=== PATIENT | male | born 1950 | race Caucasian/White ===

== ENCOUNTER 2017-12-30 07:50 | Day surgery (SDC) | payer MEDICARE, OTHER, SELFPAY ==
[2017-12-30 08:09] VITALS: BP 153/70; PULSE 68; RESP 16; TEMP 36.5; O2SAT 97; BMI 25.0
--- NOTE | 2017-12-30 09:00 | COLBX_PTH ---
PATIENT: NATIVIDAD ARTIS LOC: [facility] U#:[id number] AGE/SX: 67/M ROOM: RE12/30/[address]: Dr. German Urias MD : 1950 BED: DIS: 12/30/2017 SPEC #: [id number] RECD: 12/30/17 11:32 STATUS: PENELOPE MALATHI #: [id number] ANTONY: 12/30/17 09:[address]: German Urias DEPT: SURGICAL PATHOLOGY RECD BY: Ugo Egan ENTERED: 12/30/17 11:32 SP TYPE: COLON BX OTHR DR: Dr. Edgar Whitley MD Tissues: A - Sigmoid colon biopsy B - Rectum, NOS Procedures: Surgery Specimen Level IV HEADER OPERATION: Colonoscopy with polypectomy PRE-OP DIAGNOSIS: Screening TISSUE SUBMITTED: A ? Sigmoid polyp 25 cm, B ? Rectal polyp MICROSCOPIC DIAGNOSIS A. Sigmoid polyp at 25 cm, polypectomy: Tubular adenoma. B. Rectal polyp, biopsy: Hyperplastic polyp. JASPAL:marilin 01/02/18 MICROSCOPIC DESCRIPTION Slides are reviewed. GROSS DESCRIPTION A - Received in fixative is one container labeled with the patient's name and designated sigmoid polyp 25 cm. The specimen consists of a piece of greenfield-pink polyp measuring 0.6 x 0.6 x 0.4 cm. The specimen is totally submitted in one cassette. B - Received in fixative is one container labeled with the patient's name and designated rectal polyp. The specimen consists of two irregular fragments of light greenfield soft tissue that in aggregate measure 0.4 x 0.3 x 0.1 cm. The specimen is totally submitted in one cassette. / JASPAL:marilin 12/30/17 TC:1 CPT: 69052 x2
--- NOTE | 2017-12-30 09:09 | PCM.OPRPT ---
Problem List (1) Screen for colon cancer Status: Acute Report of Operation Date of Procedure: 12/30/17 Pre-Operative Diagnosis: Screening colonoscopy Post-Operative Diagnosis: Sigmoid and rectal polyp Surgery/Procedure Performed:: Colonoscopy with snare polypectomy Specimen's removed: 1. Sigmoid polyp at 25 cm. 2. Rectal polyp Description of Procedure: The major risks and benefits associated with the procedure were explained to the patient in detail. The patient verbalized understanding and agreement with the same. The patient was brought to the endoscopy suite. After adequate sedation was achieved, the patient was placed in the left lateral decubitus position and a digital rectal exam was performed. This examination was within normal limits. A well-lubricated colonoscope was then inserted into the rectum and advanced under direct visualization to the level of the cecum. The bowel prep was good. The cecum was identified by both visual and anatomic landmarks. A photograph was taken of the end of the cecum. The scope was then fully withdrawn while examining the color, texture, anatomy and integrity of the mucosa from the cecum to the anal canal. The findings were consistent with normal colonic mucosa. Over 6 minutes were taken to examine the colonic mucosa. The patient did have a pedunculated polyp at 25 cm in the sigmoid colon. This was removed with cautery snare. The patient also had a small rectal polyp which was also removed with cautery snare. Hemostasis was good at both locations. Upon reaching the rectum the scope was retroflexed to examine the distal rectal vault. The scope was then straightened and was completely retrieved upon exiting the anal canal and the procedure was terminated. The patient was then transferred to the recovery room in stable condition. Recommendations for follow up: Dependent on pathology
[2017-12-30 09:11] VITALS: BP 153/70; BP 96/76; PULSE 78; RESP 16; TEMP 37.2; O2SAT 98
[2017-12-30 09:15] VITALS: BP 136/76; BP 153/70; PULSE 76; RESP 18; O2SAT 99
[2017-12-30 09:20] VITALS: BP 140/72; BP 153/70; PULSE 70; RESP 18; O2SAT 97
[2017-12-30 09:26] VITALS: BP 153/70; BP 176/87; PULSE 76; RESP 18; TEMP 37; O2SAT 100
[2017-12-30 09:45] VITALS: BP 153/70
== END 2017-12-30 09:50 | disposition home or self-care (01) ==
LOC: EN 07:52 → AC 07:53
PROVIDERS: Family Provider Family Medicine; PCP Family Medicine; Visit Provider Surgery
PROC: 0DJD8ZZ Inspection of Lower Intestinal Tract, Via Natural or Artificial Opening Endoscopic (ICD-10-PCS; CPT 45378; principal; 2017-12-30 08:50)
DX: Z12.11 Encounter for screening for malignant neoplasm of colon (principal); D12.5 Benign neoplasm of sigmoid colon; K62.1 Rectal polyp; I10 Essential (primary) hypertension; F17.200 Nicotine dependence, unspecified, uncomplicated; Z79.82 Long term (current) use of aspirin; Z79.899 Other long term (current) drug therapy; Z85.51 Personal history of malignant neoplasm of bladder; Z92.21 Personal history of antineoplastic chemotherapy
CPT/HCPCS: 45385; 88305; J7120

== ENCOUNTER → 2018-01-17 18:31 | Outpatient (CLI) | payer MEDICARE, OTHER, SELFPAY ==
--- NOTE | 2018-01-17 16:20 | CYSPIN_PTH ---
PATIENT: NATIVIDAD ARTIS LOC: [facility] U#:[id number] AGE/SX: 75/M ROOM: RE01/17/[address]: Dr. Justin Vicente MD : 1950 BED: DIS: SPEC #: [id number] RECD: 01/18/18 08:03 STATUS: PENELOPE MALATHI #: [id number] ANTONY: 01/17/18 16:[address]: Justin Vicente DEPT: CYTOLOGY RECD BY: Maik Bravo ENTERED: 01/18/18 08:04 SP TYPE: CYSPIN FL OTHR DR: Dr. Edgar Whitley MD Tissues: Urine Procedures: Pap Stain (control) Special Stain Group II Cytospin Fluid HEADER OPERATION: Not noted PRE-OP DIAGNOSIS: History of bladder CA TISSUE SUBMITTED: Urine for cytology DIAGNOSIS CYTOLOGY Urine for cytology (cytospin): Negative for malignant cells. AM:marilin 01/19/18 COMMENT The tissue primarily contains squamous epithelial cells. Clinical correlation is suggested. CYTOLOGY STUDY Slides are reviewed. CYTOLOGY GROSS Received is 30 ml of clear yellow fluid labeled with the patient's name and and designated per the requisition as urine. Submitted for cytology preparation. 01/18/18 TC:5 CPT: 69610
[2018-01-17 18:33] LABS: Cytology, Body Fluid / CSF SEE PATHOLOGY REPORT
== END ==
PROVIDERS: Family Provider Family Medicine; PCP Family Medicine; Visit Provider Urology
DX: Z85.51 Personal history of malignant neoplasm of bladder (principal)
CPT/HCPCS: 88108; 88313

== ENCOUNTER 2018-05-31 09:16 | Day surgery (SDC) | payer MEDICARE, OTHER, SELFPAY ==
[2018-05-24 10:08] VITALS: BP 159/74; PULSE 74; RESP 16; TEMP 37.1; O2SAT 98; BMI 26.2
--- NOTE | 2018-05-24 10:25 | SDCEKG_ITS ---
Test Reason : Blood Pressure : / mmHG Vent. Rate : 067 BPM Atrial Rate : 067 BPM P-R Int : 152 ms QRS Dur : 078 ms QT Int : 400 ms P-R-T Axes : 060 016 034 degrees QTc Int : 422 ms Normal sinus rhythm Normal ECG Confirmed by JULIA FRANCO, BRITTANY ([id number]), makeup editor BRONWYN TROY ([id number]) on 05/26/2018 2:02:42 PM Referred By: Justin Vicente Confirmed By:BRITTANY DUMONT MD
[2018-05-24 10:51] LABS: Hematocrit 47.6 % (40-54); Hemoglobin 15.5 g/dl (13.0-16.5); Mean Corp Hgb Conc 32.6 g/gl (32-36); Mean Corpuscular Hgb 30.5 pg (27.0-32.0); Mean Corpuscular Volume 93.5 fL (80-94); Mean Platelet Vol. 11.5 fl (6.2-12.0); Platelet Count 185 K/mm3 (150-450); RBC Distribution Width CV 13.2 % (11.6-14.6); RBC Distribution Width SD 45.2 fl (35.1-43.9); Red Blood Count 5.09 M/mm3 (4.6-6.2); White Blood Count 6.7 K/mm3 (4.4-11.0)
[2018-05-24 10:52] LABS: Scan Indicated on CBC? Y/N NO
[2018-05-24 11:03] LABS: Prothrombin Time (Protime)PT. 12.8 SECONDS (11.7-14.9)
[2018-05-24 11:04] LABS: Partial Thromboplast Time 23.2 Seconds (24.1-36.2)
[2018-05-24 11:08] LABS: AST(SGOT) 16 U/L (15-37); Alanine Aminotransfer ALT/SGPT 29 U/L (16-61); Albumin, Serum 3.9 g/dL (3.2-5.0); Alkaline Phosphatase 66 U/L (45-117); Anion Gap 7 (5-15); BUN 19 mg/dL (7-18); BUN/Creat Ratio 20.3 RATIO (10-20); Bilirubin, Direct 0.15 mg/dL (0.00-0.30); Calcium,Total 9.1 mg/dL (8.5-10.1); Chloride 105 mmol/L (98-107); Creatinine, Serum 0.94 mg/dL (0.70-1.30); EST Glomerular Filtration Rate 85 mL/min (>60); Est Glom Filt Rate - Afr Amer 103 mL/min (>60); Estimated Creatinine Clearance 70.32 ml/min; Globulin 3.3 g/dL (2.2-4.2); Glucose 99 mg/dL (74-106); Potassium 4.9 mmol/L (3.5-5.1); Protein, Total 7.2 g/dL (6.4-8.2); Sodium Level 140 mmol/L (136-145)
[2018-05-31] VITALS (11 sets, daily range): BP systolic 137–168; BP diastolic 58–93; PULSE 60–85; RESP 14–18; TEMP 36.3–36.8; O2SAT 94–100; BMI 26.2
--- NOTE | 2018-05-31 10:55 | PROS_PTH ---
PATIENT: NATIVIDAD ARTIS [place] [facility] [id number] AGE/SX: 67/M ROOM: RE05/31/[address]: Dr. Justin Vicente MD : 1950 BED: DIS: 06/01/2018 SPEC #: [id number] RECD: 05/31/18 14:54 STATUS: PENELOPE SERVIN #: [id number] ANTONY: 05/31/18 10:[address]: Justin Vicente DEPT: SURGICAL PATHOLOGY RECD BY: Maik Bravo ENTERED: 06/01/18 10:07 SP TYPE: TURP OTHR DR: Dr. Edgar Whitley MD Tissues: Prostate, NOS Procedures: Surgery Specimen Level IV HEADER OPERATION: Cysto, TUR, prostate, [employer] PRE-OP DIAGNOSIS: BPH with obstruction TISSUE SUBMITTED: Prostate tissue MICROSCOPIC DIAGNOSIS Prostate, transurethral resection: Acute and chronic inflammation. Benign nodular hyperplasia, glandular and stromal types. No evidence of malignancy. AM:marilin 06/02/18 MICROSCOPIC DESCRIPTION Slides are reviewed. GROSS DESCRIPTION Received is one container labeled with the patient's name and designated prostate tissue. The specimen consists of multiple irregular fragments of pink-greenfield, rubbery, soft tissue that in aggregate weigh 19.4 gm and measure in aggregate 7 x 7 x 3 cm. Food Service Helper tissue is submitted in 12 cassettes. JASPAL:marilin 06/01/18 TC:2 CPT: 17578
[2018-05-31] MEDS: Cefazolin 2 GM in 0.9% Normal Saline 100 ML IV (11:32)
[2018-05-31] MEDS: Lubricating Jelly 60 GM Tube 30 GM TOPICAL (11:58)
--- NOTE | 2018-05-31 12:57 | PCM.OPRPT ---
Report of Operation Date of Procedure: 05/31/18 Pre-Operative Diagnosis: BPH with obstruction Post-Operative Diagnosis: Same Surgery/Procedure Performed:: Transurethral resection of the prostate Description of Surgical Findings:: 67-year-old male taken back to the operating room after smooth induction of general anesthesia he was placed supine on the table we then repositioned in dorsolithotomy position penis and testicles are prepped and draped in usual sterile fashion I then dilated the urethra with sounds up to 26 Maltese and then went into the urethra with a 26 Maltese continuous flow resectoscope once inside the bladder the entire length of the urethra is normal sphincter was normal the bladder was identified he had significant bilateral hypertrophy and obstruction invaginating into the bladder inside the bladder identified the left and right ureteral orifice the bladder was trabeculated and thickened but no tumors or stones are seen within the bladder I then started the resection there was really no median lobe resected the right lobe of the prostate all the way back to the verumontanum resected the left lobe of the prostate low back to the verumontanum resected circumferentially at the bladder neck to make sure had all the invaginating tissue and then resected back to the Vik I then elect out all the chips as I resected and then switch over the button cauterize a nice smooth channel a smooth open the resection at the apex to avoid any flapping tissue and then he had a nice flow that a nice daily and flow maneuver no tissue within the bladder 22 Maltese catheter was put into the bladder continues bladder irrigation the urine was nice and clear the patient was extubated taken back to PACU in good condition. Type of Anesthesia:: General Specimen's removed: prostate tissue - Admit VTE Documentation VTE Present on Admission: No VTE Mechan Device Prophylaxis: SCD's VTE Pharm Prophylaxis ordered?: No Reason prophylaxis not ordered:: Treatment Not Indicated
[2018-05-31] MEDS: Ciprofloxacin 250 MG Tablet PO ×2 (15:20→21:36)
[2018-05-31] MEDS: 0.9% Normal Saline 1,000 ML 75 ML IV (16:58)
[2018-05-31] MEDS: Acetaminophen 325 MG Tablet PO (16:59)
[2018-05-31] MEDS: Ramipril 10 MG Capsule PO (16:59)
[2018-05-31] MEDS: Docusate Sodium 100 MG Capsule PO (21:36)
[2018-06-01 04:30] VITALS: BP 139/57; PULSE 67; RESP 16; TEMP 36.8; O2SAT 96
[2018-06-01] MEDS: 0.9% Normal Saline 1,000 ML 75 ML IV (05:56)
[2018-06-01] MEDS: Ciprofloxacin 250 MG Tablet PO (09:01)
[2018-06-01] MEDS: Docusate Sodium 100 MG Capsule PO (09:01)
[2018-06-01] MEDS: Pantoprazole Sodium 40 MG Tablet PO (09:02)
[2018-06-01 09:31] VITALS: BP 154/56; PULSE 97; RESP 18; TEMP 36.2; O2SAT 96
[2018-06-01 09:32] VITALS: RESP 18
[2018-06-01 11:44] VITALS: BP 144/60; PULSE 65; RESP 18; TEMP 36.8; O2SAT 98
== END 2018-06-01 11:48 | disposition home or self-care (01) ==
LOC: SDC 09:17 → AC 09:17 → MS3 12:13
PROVIDERS: Anesthesiology; Family Provider Family Medicine; PCP Family Medicine; Visit Provider Urology
PROC: (CPT 52601; principal; 2018-05-31 10:45)
DX: N40.1 Benign prostatic hyperplasia with lower urinary tract symptoms (principal); N41.0 Acute prostatitis; N41.1 Chronic prostatitis; C67.1 Malignant neoplasm of dome of bladder; R31.0 Gross hematuria; R33.8 Other retention of urine; N32.89 Other specified disorders of bladder; I10 Essential (primary) hypertension; F17.210 Nicotine dependence, cigarettes, uncomplicated; Z79.82 Long term (current) use of aspirin; Z79.899 Other long term (current) drug therapy
CPT/HCPCS: 52601; 80048; 80076; 85027; 85610; 85730; 88305; 93005; 94762; 99406; J7030; J7120

== ENCOUNTER → 2018-10-03 18:08 | Outpatient (CLI) | payer MEDICARE, OTHER, SELFPAY ==
--- NOTE | 2018-10-03 16:00 | CYSPIN_PTH ---
PATIENT: NATIVIDAD ARTIS LOC: [facility] U#:[id number] AGE/SX: 75/M ROOM: RE10/03/[address]: Dr. Justin Vicente MD : 1950 BED: DIS: SPEC #: [id number] RECD: 10/04/18 10:03 STATUS: PENELOPE MALATHI #: [id number] ANTONY: 10/03/18 16:[address]: Justin Vicente DEPT: CYTOLOGY RECD BY: Evens Mathew ENTERED: 10/04/18 10:04 SP TYPE: CYSPIN FL OTHR DR: Dr. Edgar Whitley MD Tissues: Urine Procedures: Pap Stain (control) Special Stain Group II Cytospin Fluid HEADER OPERATION: Not noted PRE-OP DIAGNOSIS: Bladder cancer TISSUE SUBMITTED: Urine for cytology DIAGNOSIS CYTOLOGY Urine for cytology (cytospin): Negative for malignant cells. AM:marilin 10/05/18 CYTOLOGY STUDY Slides are reviewed. CYTOLOGY GROSS Received is 40 ml of clear gold fluid labeled with the patient's name and and designated per the requisition as urine. Submitted for cytology preparation. 10/04/18 TC:5 CPT: 93322
[2018-10-03 18:10] LABS: Cytology, Body Fluid / CSF SEE PATHOLOGY REPORT
--- OUTSIDE RECORDS SUMMARY | 2019-01-05 06:04 | XMS RPT_ITS ---
:1950 Author Organization OHIP Care Team Providers Name Role Phone Jules Justin Diaz Attending Unavailable Troy, Edgar Primary Care Unavailable Jules, Justin Diaz Referring Unavailable Moodispaamilcar, Larry Attending Unavailable DeHorta, Nolberto Referring Unavailable Jules, Justin Diaz Attending Unavailable Troy, Edgar Primary Care Unavailable Jules, Justin Diaz Referring Unavailable Jules, Justin Diaz Attending Unavailable Troy, Edgar Primary Care Unavailable Jules, Justin Diaz Referring Unavailable Calabretta, German Attending Unavailable Calabretta, German Referring Unavailable Troy, Edgar Primary Care Unavailable Calabretta, German Consulting Unavailable Calabretta, German Attending Unavailable Calabretta, German Referring Unavailable Troy, Edgar Primary Care Unavailable Calabretta, German Attending Unavailable Troy, Edgar Referring Unavailable Troy, Edgar Primary Care Unavailable PROBLEMS PROBLEMS DATE TYPE CONDITION / CODE ATTENDING STATUS SOURCE 07/04/2018 Unknown N40.1 - Benign Jules, Justin Active [facility] prostatic Joe [facility] hyperplasia with Hospital lower urinary Repository tract symptoms / N40.1(ICD-10) 07/03/2018 Unknown I10 - Essential Moodispaw, Larry Active [place] (primary) [facility] hypertension / Hospital I10(ICD-10) Repository PROCEDURES PROCEDURES No Procedure Records FoundRESULTS RESULTS CYTOSPIN ON FLUID Observed: 10/03/2018 Status: F Source: [place] 4:00 PM [facility] Patient: NATIVIDAD ARTIS : 1950 (68/M) Acct Num: [id number] Phys: Jules FRANCO,Justin Diaz Unit Num: [id number] Loc: LABSPEC Specimen: [id number] Received: 10/04/18 - 1003 Spec Type: CYSPIN FL TISSUES 1 TISSUES: Urine CYTOLOGY GROSS Received is 40 ml of clear gold fluid labeled with the patient's name and and designated per the requisition as urine. Submitted for cytology preparation. / 10/04/18 TC:5 CPT: 16987 CYTOLOGY STUDY Slides are reviewed. DIAGNOSIS CYTOLOGY Urine for cytology (cytospin): Negative for malignant cells. AM:marilin 10/05/18 HEADER OPERATION: Not noted PRE-OP DIAGNOSIS: Bladder cancer TISSUE SUBMITTED: Urine for cytology Signed Mario Pascual, DO 10/05/18 <signature on file> Performed By: #### PCYSPIN #### [facility] [address] [place], [address] CYTOLOGY, BODY FLUID / Collected: 10/03/2018 Status: F Source: AYES[place] CSF 4:00 PM [facility] Order Comment: Specimen Source: URINE TYPE CODE TESTS RESULT OUT OF RANGE REFERENCE UNITS LAB L350.1000 SEE Normal PATHOLOGY CYTOLOGY,BF REPORT /CSF Result Comment: Specimen submitted to Anatomical Pathology Department for testing. Performed By: #### L350.1000 #### [facility] [address], [address] OPERATIVE REPORT Observed: 05/31/2018 Status: F Source: [place] 1:00 PM [facility] Medical Records Department [address] [place] [address] Operative Report 05/31/18 1257 MR#: [id number] Acct: [id number] Name: NATIVIDAD ARTIS Rep #: [id number] : 1950 67 From: Justin Vicente MD PCP: Edgar Troy MD Status: [facility] Y Location: [place] [address] Report of Operation Date of Procedure: 05/31/18 Pre-Operative Diagnosis: BPH with obstruction Post-Operative Diagnosis: Same Surgery/Procedure Performed:: Transurethral resection of the prostate Description of Surgical Findings:: 67-year-old male taken back to the operating room after smooth induction of general anesthesia he was placed supine on the table we then repositioned in dorsolithotomy position penis and testicles are prepped and draped in usual sterile fashion I then dilated the urethra with sounds up to 26 Hong [place]er and then went into the urethra with a 26 [place]er continuous flow resectoscope once inside the bladder the entire length of the urethra is normal sphincter was normal the bladder was identified he had significant bilateral hypertrophy and obstruction invaginating into the bladder inside the bladder identified the left and right ureteral orifice the bladder was trabeculated and thickened but no tumors or stones are seen within the bladder I then started the resection there was really no median lobe resected the right lobe of the prostate all the way back to the verumontanum resected the left lobe of the prostate low back to the verumontanum resected circumferentially at the bladder neck to make sure had all the invaginating tissue and then resected back to the Vik I then elect out all the chips as I resected and then switch over the button cauterize a nice smooth channel a smooth open the resection at the apex to avoid any flapping tissue and then he had a nice flow that a nice daily and flow maneuver no tissue within the bladder 22 [place]er catheter was put into the bladder continues bladder irrigation the urine was nice and clear the patient was extubated taken back to PACU in good condition. Type of Anesthesia:: General Specimen's removed: prostate tissue - Admit VTE Documentation VTE Present on Admission: No VTE Mechan Device Prophylaxis: SCD's VTE Pharm Prophylaxis ordered?: No Reason prophylaxis not ordered:: Treatment Not Indicated 05/31/18 1300 <Electronically signed by Justin Vicente MD> Date Justin Vicente MD CC: Edgar Troy MD; Justin Vicente MD Signed PROSTATE, TUR Observed: 05/31/2018 Status: F Source: [place] 10:55 AM [facility] Patient: NATIVIDAD ARTIS : 1950 (67/M) Acct Num: [id number] Phys: Jules FRANCO,Justin Diaz Unit Num: [id number] Loc: [facility] Specimen: [id number] Received: 05/31/18 - 1454 Spec Type: TURP TISSUES TISSUES: Prostate, NOS GROSS DESCRIPTION Received is one container labeled with the patient's name and designated prostate tissue. The specimen consists of multiple irregular fragments of pink-greenfield, rubbery, soft tissue that in aggregate weigh 19.4 gm and measure in aggregate 7 x 7 x 3 cm. Search And Rescue Officer tissue is submitted in 12 cassettes. SJ :marilin 06/01/18 TC:2 CPT: 32187 HEADER OPERATION: Cysto, TUR, prostate, Olympus PRE-OP DIAGNOSIS: BPH with obstruction TISSUE SUBMITTED: Prostate tissue MICROSCOPIC DESCRIPTION Slides are reviewed. MICROSCOPIC DIAGNOSIS Prostate, transurethral resection: Acute and chronic inflammation. Benign nodular hyperplasia, glandular and stromal types. No evidence of malignancy. AM:rg 06/02/18 Signed Mario Jiih 06/02/18 <signature on file> Performed By: #### PPROS #### [facility] [address] [place], [address] 12 LEAD ELECTROCARDIOGRAM Observed: 05/26/2018 Status: F Source: [place] 2:03 PM [facility] Cardiovascular Services [address] [place] [address] EKG - SDC 05/24/18936 MR#: [id number] Acct: [id number] Name: NATIVIDAD ARTIS Rep #: [id number] : 1950 67 From: Larry Dumont MD Attending Dr: Jules FRANCO,Justin Diaz Status: PRE SDC Ordering Dr: Nolberto Lizama MD Date: 05/24/18 Location: [facility] Sex: M C Admitted: Test Reason : Blood Pressure : / mmHG Vent. Rate : 067 BPM Atrial Rate : 067 BPM P-R Int : 152 ms QRS Dur : 078 ms QT Int : 400 ms P-R-T Axes : 060 016 034 degrees QTc Int : 422 ms Normal sinus rhythm Normal ECG Confirmed by JULIA FRANCO, LARRY ([id number]), purchase request editor BRONWYN TROY ([id number]) on 05/26/2018 2:02:42 PM Referred By: Justin Vicente Confirmed By:LARRY DUMONT MD 05/26/18 1402 Date Larry Dumont MD CC: Nolberto Lizama MD; Edgar Troy MD; Justin Vicente MD Date Dictated: 05/24/1837 Date Transcribed: 05/24/18936 Terminal Operator: Signed CBC-COMPLETE BLOOD CNT Collected: 05/24/2018 Status: F Source: [place] NO DIFF 10:28 AM [facility] TYPE CODE TESTS RESULT OUT OF RANGE REFERENCE UNITS LAB L100.1000 4.4-11.0 K/mm3 Normal WBC 6.7 LAB L100.1200 4.6-6.2 M/mm3 Normal RBC 5.09 LAB L100.1300 13.0-16.5 g/dl Normal HGB 15.5 LAB L100.1400 40-54 % Normal HCT 47.6 LAB L100.1500 80-94 fL Normal MCV 93.5 LAB L100.1600 27.0-32.0 pg Normal MCH 30.5 LAB L100.1700 32-36 g/gl Normal MCHC 32.6 LAB L100.1810 11.6-14.6 % Normal RDW CV 13.2 LAB L100.1820 35.1-43.9 fl High RDW SD 45.2 LAB L100.1900 150-450 K/mm3 Normal PLT 185 LAB L100.2000 6.2-12.0 fl Normal MPV 11.5 Performed By: #### L100.0500 #### [facility] [address] [place], [address] BASIC METABOLIC Collected: 05/24/2018 Status: F Source: [place] PROFILE (BMP) 10:28 AM [facility] TYPE CODE TESTS RESULT OUT OF RANGE REFERENCE UNITS LAB L501.0100 74-106 mg/dL Normal GLU 99 Result Comment: Please note revised GLUCOSE reference range effective 2017. LAB L501.1000 7-18 mg/dL High BUN 19 LAB L501.1100 0.70-1.30 mg/dL Normal CREAT,SERUM 0.94 Result Comment: The validity of the calculated GFR AND GFRAA in patients over 70 years has not been determined. Clinical correlation is essential. LAB L501.1110 >60 mL/min Normal EST GFR 85 Result Comment: Non- GFR Calc LAB L501.1115 >60 mL/min Normal EST GFR - AA 103 Result Comment: GFR Calc LAB L501.1255 ml/min Normal Estimated CRCL 70.32 LAB L501.1300 10-20 RATIO High BUN/CRE 20.3 LAB L501.2200 8.5-10 mg/dL Normal .1 CA 9.1 LAB L501.5300 136-14 mmol/L Normal 5 NA 140 LAB L501.5600 3.5-5. mmol/L Normal 1 K 4.9 LAB L501.5900 98-107 mmol/L Normal CL 105 LAB L501.6100 21.0-3 mmol/L Normal 2.0 CO2 28.0 LAB L501.6200 5-15 Normal GAP 7 Performed By: #### L500.2500, L500.3400 #### [facility] [address], [place], [id number] LIVER PROFILE Collected: 05/24/2018 Status: F Source: [place] 10:28 AM [facility] TYPE CODE TESTS RESULT OUT OF RANGE REFERENCE UNITS LAB L501.1500 6.4-8.2 g/dL Normal T PROT 7.2 LAB L501.1800 3.2-5.0 g/dL Normal ALB 3.9 LAB L501.1950 2.2-4.2 g/dL Normal GLOB 3.3 LAB L501.4100 15-37 U/L Normal AST 16 LAB L501.4305 45-117 U/L Normal ALK P 66 LAB L501.4405 16-61 U/L Normal ALT 29 LAB L501.4600 0.20-1.00 mg/dL Normal T BILI 0.50 LAB L501.4700 0.00-0.30 mg/dL Normal D BILI 0.15 Performed By: #### L500.2500, L500.3400 #### [facility] [address], [place], [id number] PROTHROMBIN TIME W/INR Collected: 05/24/2018 Status: F Source: [place] 10:28 AM [facility] TYPE CODE TESTS RESULT OUT OF RANGE REFERENCE UNITS LAB L300.4150 11.7-14.9 SECONDS Normal PROTIME 12.8 LAB L300.4200 Normal INR 1.0 Performed By: #### L300.3900, L300.4310 #### [facility] [address], [place], [id number] PARTIAL THROMBOPLAST Collected: 05/24/2018 Status: F Source: [place] TIME 10:28 AM [facility] TYPE CODE TESTS RESULT OUT OF REFERENCE UNITS RANGE LAB L300.4310 24.1-36.2 Seconds Low PTT 23.2 Performed By: #### L300.3900, L300.4310 #### [facility] [address] [place], [address] CYTOSPIN ON FLUID Observed: 01/17/2018 Status: F Source: [place] 4:20 PM [facility] Patient: NATIVIDAD ARTIS : 1950 (67/M) Acct Num: [id number] Phys: Jules FRANCO,Medardo Unit Num: [id number] Loc: LABSPEC Specimen: [id number] Received: 01/18/18802 Spec Type: CYSPIN FL TISSUES TISSUES: Urine COMMENT The tissue primarily contains squamous epithelial cells. Clinical correlation is suggested. CYTOLOGY GROSS Received is 30 ml of clear yellow fluid labeled with the patient's name and and designated per the requisition as urine. Submitted for cytology preparation. 01/18/18 TC:5 CPT: 70556 CYTOLOGY STUDY Slides are reviewed. DIAGNOSIS CYTOLOGY Urine for cytology (cytospin): Negative for malignant cells. AM:marilin 01/19/18 HEADER OPERATION: Not noted PRE-OP DIAGNOSIS: History of bladder CA TISSUE SUBMITTED: Urine for cytology Signed Mario [facility] 01/19/18 <signature on file> Performed By: #### PCYSPIN #### [facility] [address] [place], [address] CYTOLOGY, BODY FLUID / Collected: 01/17/2018 Status: F Source: [place] CSF 4:20 PM [facility] Order Comment: Specimen Source: URINE TYPE CODE TESTS RESULT OUT OF RANGE REFERENCE UNITS LAB L350.1000 SEE Normal PATHOLOGY CYTOLOGY,BF REPORT /CSF Result Comment: Specimen submitted to Anatomical Pathology Department for testing. Performed By: #### L350.1000 #### [facility] [address] [place], [address] OPERATIVE REPORT Observed: 12/30/2017 Status: F Source: [place] 9:10 AM [facility] Medical Records Department [address] [place] [address] Operative Report 12/30/1709 MR#: [id number] Acct: [id number] Name: NATIVIDAD ARTIS Rep #: [id number] : 1950 67 From: German Urias MD PCP: Edgar Tory MD Status: REG [facility] Y Location: [place] [address] Problem List (1) Screen for colon cancer Status: Acute Report of Operation Date of Procedure: 12/30/17 Pre-Operative Diagnosis: Screening colonoscopy Post-Operative Diagnosis: Sigmoid and rectal polyp Surgery/Procedure Performed:: Colonoscopy with snare polypectomy Specimen's removed: 1. Sigmoid polyp at 25 cm. 2. Rectal polyp Description of Procedure: The major risks and benefits associated with the procedure were explained to the patient in detail. The patient verbalized understanding and agreement with the same. The patient was brought to the endoscopy suite. After adequate sedation was achieved, the patient was placed in the left lateral decubitus position and a digital rectal exam was performed. This examination was within normal limits. A well- lubricated colonoscope was then inserted into the rectum and advanced under direct visualization to the level of the cecum. The bowel prep was good. The cecum was identified by both visual and anatomic landmarks. A photograph was taken of the end of the cecum. The scope was then fully withdrawn while examining the color, texture, anatomy and integrity of the mucosa from the cecum to the anal canal. The findings were consistent with normal colonic mucosa. Over 6 minutes were taken to examine the colonic mucosa. The patient did have a pedunculated polyp at 25 cm in the sigmoid colon. This was removed with cautery snare. The patient also had a small rectal polyp which was also removed with cautery snare. Hemostasis was good at both locations. Upon reaching the rectum the scope was retroflexed to examine the distal rectal vault. The scope was then straightened and was completely retrieved upon exiting the anal canal and the procedure was terminated. The patient was then transferred to the recovery room in stable condition. Recommendations for follow up: Dependent on pathology 12/30/17 0910 <Electronically signed by German Urias MD> Date German Urias MD CC: German Urias MD; Edgar Troy MD Signed COLON BIOPSY (CHOOSE Observed: 12/30/2017 Status: F Source: [facility]) 9:00 AM [facility] Patient: NATIVIDAD ARTIS : 1950 (67/M) Acct Num: [id number] Phys: Bridgett FRANCO,German Unit Num: [id number] Loc: EN Specimen: [id number] Received: 12/30/171131 Spec Type: COLON BX TISSUES TISSUES: A. Sigmoid colon biopsy B. Rectum, NOS GROSS DESCRIPTION A - Received in fixative is one container labeled with the patient's name and designated sigmoid polyp 25 cm. The specimen consists of a piece of greenfield-pink polyp measuring 0.6 x 0.6 x 0.4 cm. The specimen is totally submitted in one cassette. B - Received in fixative is one container labeled with the patient's name and designated rectal polyp. The specimen consists of two irregular fragments of light greenfield soft tissue that in aggregate measure 0.4 x 0.3 x 0.1 cm. The specimen is totally submitted in one cassette. / SJ:marilin 12/30/17 TC:1 CPT: 11446 x2 HEADER OPERATION: Colonoscopy with polypectomy PRE-OP DIAGNOSIS: Screening TISSUE SUBMITTED: A Sigmoid polyp 25 cm, B Rectal polyp MICROSCOPIC DESCRIPTION Slides are reviewed. MICROSCOPIC DIAGNOSIS A. Sigmoid polyp at 25 cm, polypectomy: Tubular adenoma. B. Rectal polyp, biopsy: Hyperplastic polyp. SJ:marilin 01/02/18 Signed Diony Hernandez 01/02/18 <signature on file> Performed By: #### PCOLBX #### [facility] [place], [address] SURGERY VISIT REPORT Observed: 12/19/2017 Status: F Source: [place] 9:52 AM [facility] [address] [place] [address] OFFICE VISIT Date of Service: 12/19/17 MR#: [id number] Acct: [id number] Name: NATIVIDAD ARTIS Rep #: [id number] : 1950 Provider: German Urias MD Age/Sex: 67/M Location: [facility] Status: Signed Intake Vital Signs12/19/17 Height 5 ft 8.5 in 12/19/17 Weight: 176 lb 12/19/17 Body Mass Index (BMI) 26.4 Intake Visit Reasons: RLQ abd pain, constipation Lpn Per Diem Required: No Is patient in pain?: Yes (lower abdomen) Pain scale (1-10): 2 Allergies No Known Allergies Allergy (Verified 12/19/17 09:10) Medications Aspirin [Aspir-Low] 81 mg PO DAILY 06/03/17 [History Confirmed 06/03/17] Ramipril [Altace] 10 mg PO QHS 06/03/17 [History Confirmed 06/03/17] cyclobenzaprine 10 mg tablet 10 mg PO Q8H 12/19/17 [History Confirmed 12/19/17] diclofenac sodium 75 mg tablet,delayed release 75 mg PO BID 12/19/17 [History Confirmed 12/19/17] PFSH Medical History Back pain (Acute) Surgical History Bladder cancer (Acute) Family History Sister Multiple sclerosis Social History Smoking Status: Current some day smoker alcohol intake: current alcohol intake frequency: holidays/special occasions only HPI HPI HPI: NATIVIDAD ARTIS, is a 67 M who presents to the office today for colonoscopy. The patient was sent for screening colonoscopy as he has never had one. He reports no blood in his stool or abdominal pain. He does a have as a tightness at his beltline when he bends forward but he believes is due to lower back pain. This is been going on for about 1 month. He recently had a transurethral bladder resection for a malignant bladder tumor. ROS General General: No weight change or fatigue Musc Musculoskeletal: Yes back problems Cardio Cardiovascular: Yes high blood pressure; no murmur, pacemaker, heart disease, atrial fibrillation, heart attack, heart stent, palpitations, shortness of breat with exertion or chest pain Resp Respiratory: No shortness of breath, No sleep apnea, No cough, No COPD, No asthma, No emphysema, No wheezing Gastro Gastrointestinal: No abdominal pain, No nausea or vomiting, No diarrhea, Yes constipation, No blood in stool, No acid reflux, No hemorrhoids, No ulcers, No gallbladder problem, No black,tarry stools Pramod Hematologic: Yes blood thinners, No blood disorders, No bleeding, No anemia, No blood clots Exam Const General: cooperative Orientation: alert, oriented x3 Resp Effort AND Inspection: normal respiratory effort Auscultation: clear to auscultation bilaterally Cardio Rate: regular rate Rhythm: regular rhythm Heart Sounds: no murmurs GI Inspection: normal to inspection, non-distended Palpation: soft, nontender Assessment AND Plan Problems 1. Screen for colon cancer Z12.11 Plan 1. I reviewed the patient's CAT scan was done in May. He did have bilateral inguinal hernias at that time. But he reports the pain he is having now is more up at his beltline he says only when he is bending forward not doing any heavy lifting and he has no bulging in his groins. I examined both groins and there were no bulging hernias. He is also having no tenderness at his inguinal canals. I do not believe his pain is related to his colon for I would still consider this a screening colonoscopy. I told patient if his groins ever bothered him more that he could come back and if there was bulging and irritation due to his hernias I would be able to repair them. 2. I explained endoscopy in detail to the patient. I explained the risks including but not limited to stroke or heart attack with anesthesia, perforation of the GI tract, bleeding, infection. I explained that any of these could necessitate further emergency surgery. The patient understands and all questions were answered sufficiently. The patient wishes to proceed with procedure. German Urias MD Pager: [facility] [address] [place] [address] Office: Orders Orders: Coding Level of Care Code Off vis,new,level 3 Diagnoses Screen for colon cancer Z12.11 12/19/17 0952 <Electronically signed by German Urias MD> Date German Urias MD Cosigner Signature: Date (if applicable) CC: Edgar Troy MD ALLERGIES ALLERGIES DATE TYPE / CODE NAME / CODE REACTION SEVERITY SOURCE 05/31/2018 Drug No Known Unknown Ayesha [facility] Allergy/4160 Allergies/F00 [facility] [address](SNOMED 2671762(RXNOR Repository CT) M) ENCOUNTERS ENCOUNTERS ADMIT/DISCHARGE ACCOUNT ADMITTING ENCOUNTER LOCATION SOURCE NUMBER CLASS 10/03/2018 [id number] Ambulatory [place] Ayesha 4 [facility] ing:LABSPEC Repository 05/31/2018/ [id number] Ambulatory Ayesha [place] 8 1 [facility] ing:SDCRoom: Repository [id number] 05/24/2018 [id number] Ambulatory BMSBuilding:W Ayesha 4 [facility] Repository 01/17/2018 [id number] Ambulatory Ayesha Ayesha 5 [facility] ing:LABSPEC Repository 12/30/2017 [id number] Ambulatory BMSBuilding:B Ayesha 3 [facility] Repository 12/30/2017/ [id number] Ambulatory Ayesha Ayesha 8 7 [facility] ing:EN Repository 12/19/2017/ [id number] Ambulatory BMSBuilding:B Ayesha 8 7 [facility] Repository PAYERS PAYERS ENCOUNTER GUARANTOR PAYER SUBSCRIBER SOURCE 10/03/2018 NATIVIDAD Guerrero Primary NATIVIDAD [place] [id number] W Insurance:MEDICARE SHRIVERD[facility] [id number] Number[place] Repository [id number]: ([phone] [id number] [phone] (HP) Date:2018-10-03 10/03/2018 Secondary NATIVIDAD W [place] Insurance:AETNA SR SHRIVERDOB: Community SUPPLEMENT INSPolicy [id number] Hospital Number: Repository [id number] Date:[id number] SENIOR SUPPLEMENT [id number] [place] [id number]: 10/03/2018 Tertiary NOT GIVENUNK [place] Insurance:SELF PAY [facility] Number: Effective Repository Date:2018-10-03 05/31/2018 NATIVIDAD W Primary NATIVIDAD W [place] [id number] W Insurance:MEDICARE SHRIVERDOB: Community OLD ERIC PART A [facility] [id number] Number: Repository [address]Iri: 330 [id number] [phone] (HP) Date:2018-05-05 05/31/2018 Secondary NATIVIDAD W [place] Insurance:AETNA SR SHRIVERDOB: Community SUPPLEMENT INSPolicy [id number] Hospital Number: Repository [id number] Date:[id number] SENIOR SUPPLEMENT INSPO [id number] [place] [id number]: 05/31/2018 Tertiary NOT GIVENUNK A[place] Insurance:SELF PAY [facility] Number: Effective Repository Date:2018-05-05 05/24/2018 NATIVIDAD W Primary NATIVIDAD W [place] [id number] W Insurance:MEDICARE SHRIVERDOB: Community OLD ERIC PART A olicy [id number] Number: Repository [id number]: 330 [id number] [phone] (HP) Date:2018-05-05 05/24/2018 Secondary NATIVIDAD W [place] Insurance:AETNA SR SHRIVERDOB: Community SUPPLEMENT INSPolicy [id number] Hospital Number: Repository [id number] Date:[id number] SENIOR SUPPLEMENT INSPO [id number] [place] [address] [address]KW: 05/24/2018 Tertiary NOT GIVENUNK [place] Insurance:SELF PAY [facility]: Effective Repository Date:2018-05-24 01/17/2018 NATIVIDAD W Primary NATIVIDAD W A[place]ha [id number] W Insurance:MEDICARE SHRIVERDOB: Community OLD ERIC PART A [id number] Number: Repository [id number]: [phone] [id number] [phone] (HP) Date:2018-01-17 01/17/2018 Secondary NATIVIDAD W [place] Insurance:AETNA SR SHRIVERDOB: Community SUPPLEMENT INSPolicy [id number] Hospital Number: Repository [id number] Date:[id number] SENIOR SUPPLEMENT [address] [place] [id number]: 01/17/2018 Tertiary NOT GIVENUNK [place] Insurance:SELF PAY [facility] Number: Effective Repository Date:2018-01-17 12/30/2017 NATIVIDAD W Primary NATIVIDAD W [place] [id number] W Insurance:MEDICARE SHRIVERDOB: Community OLD ERIC PART A olic [id number] Number: Repository [id number]: [phone] [id number] [phone] () Date:2017-12-19 12/30/2017 Secondary NATIVIDAD W A[place] Insurance:AETNA SR SHRIVERDOB: Community SUPPLEMENT INSPolicy [id number] Hospital Number: Repository [id number] Date:[id number] SENIOR SUPPLEMENT [id number] [place] [address]YE: 12/30/2017 Tertiary NOT GIVENUNK [place] Insurance:SELF PAY [facility] Number: Effective Repository Date:2017-12-30 12/30/2017 NATIVIDAD W Primary NATIVIDAD W [place] [id number] W Insurance:MEDICARE SHRIVERDOB: Community OLD ERIC PART A olic [id number] Number: Repository [id number]: [phone] [id number] [phone] () Date:2017-12-19 12/30/2017 Secondary NATIVIDAD W [place] Insurance:AETNA SR SHRIVERDOB: Community SUPPLEMENT INSPolicy [id number] Hospital Number: Repository [id number] Date:[id number] SENIOR SUPPLEMENT [address] [address], [place] [address]NR: 12/30/2017 Tertiary NOT GIVENUNK [place] Insurance:SELF PAY [facility] Effective Repository Date:2017-12-19 12/19/2017 NATIVIDAD W Primary NATIVIDAD W Ayesha [id number] W Insurance:MEDICARE SHRIVERDOB: Community OLD PONTIAC PART A BPolicy [id number] Number: Repository [id number]: [phone] [id number] [phone] () Date:2017-12-12 12/19/2017 Secondary NATIVIDAD W A[place] Insurance:AETNA SR SHRIVERDOB: Community [facility] [id number] Hospital Number: Repository [id number] Date:[id number] SENIOR SUPPLEMENT [address] [address], [place] [address]LB: 12/19/2017 Tertiary NOT GIVENUNK [place] Insurance:SELF PAY [facility] Number: Effective Repository Date:2017-12-12
== END ==
PROVIDERS: Family Provider Family Medicine; PCP Family Medicine; Referring Provider Urology; Visit Provider Urology
DX: C67.9 Malignant neoplasm of bladder, unspecified (principal)
CPT/HCPCS: 88108; 88313

== ENCOUNTER → 2019-08-07 16:58 | Outpatient (CLI) | payer MEDICARE, OTHER, SELFPAY ==
[2018-05-31 14:19] VITALS: BMI 26.2
[2019-08-07 17:13] LABS: Bacteria 0 SEEN /hpf (None Seen); Red Blood Cells-Urine 0 SEEN /hpf (0-5)
[2019-08-07 17:55] LABS: Color, Urine Yellow (Yellow); Glucose, Dipstick Normal (Normal); Ketone-Dipstick 15 mg/dl (Negative); Leukocyte Esterase-Dipstick Negative /ul (Negative); Nitrite-Dipstick Negative (Negative); Occult Blood-Urine 10 /ul (Negative); Protein-Dipstick Negative (Negative); Specific Gravity, Urine 1.025 (1.002-1.030); Urine Bilirubin Dipstick Negative (Negative); Urine Clarity Clear (Clear); Urine Urobilinogen Normal (Normal)
[2019-08-07 18:06] LABS: Absolute Lymphocyte Count 2.05 X10^3/uL (0.83-4.51); Absolute Neutrophil Count 5.5 X10^3/uL (2.0-7.7); Basophil# 0.06 X10^3/uL; Basophil% 0.7 % (0-1); Eosinophil# 0.52 X10^3/uL; Eosinophils% 5.9 % (0-5); Hematocrit 47.5 % (40-54); Hemoglobin 15.6 g/dL (13.0-16.5); Lymphocyte # 2.05 X10^3/ul (4.0); Lymphocyte % 23.2 % (19-41); Mean Corp Hgb Conc 32.8 g/dL (32-36); Mean Corpuscular Hgb 30.8 pg (27.0-32.0); Mean Corpuscular Volume 93.9 fL (80-94); Mean Platelet Vol. 11.4 fl (6.2-12.0); Monocyte# 0.72 X10^3/uL; Monocyte% 8.1 % (0-10); NRBC Flagged by Analyzer 0 % (0-5); Neutrophil # 5.45 X10^3/uL (2.7-7.7); Neutrophil % 61.6 % (47-70); Platelet Count 247 K/mm3 (150-450); RBC Distribution Width CV 13.5 % (11.6-14.6); RBC Distribution Width SD 46.7 fl (35.1-43.9); Red Blood Count 5.06 M/mm3 (4.6-6.2); White Blood Count 8.8 K/mm3 (4.4-11.0)
[2019-08-07 18:57] LABS: ALB/GLOB Ratio 1.1 RATIO (0.9-2.4); AST(SGOT) 16 U/L (15-37); Alanine Aminotransfer ALT/SGPT 24 U/L (16-61); Albumin, Serum 4.1 g/dL (3.2-5.0); Alkaline Phosphatase 79 U/L (45-117); Anion Gap 7 (5-15); BUN 17 mg/dL (7-18); Calcium,Total 9.2 mg/dL (8.5-10.1); Chloride 104 mmol/L (98-107); Cholesterol 173 mg/dL (200); EST Glomerular Filtration Rate 89 mL/min (>60); Est Glom Filt Rate - Afr Amer 108 mL/min (>60); Globulin 3.6 g/dL (2.2-4.2); Glucose 83 mg/dL (74-106); High Density Lipoprotein 56 mg/dL; Potassium 4.3 mmol/L (3.5-5.1); Protein, Total 7.7 g/dL (6.4-8.2); Sodium Level 138 mmol/L (136-145); Thyroid Stim Hormone (TSH) 0.78 uIU/mL (0.358-3.74); Triglycerides 142 mg/dL; Very Low Density Lipoprotein 28 mg/dL (5-40)
[2019-08-07 19:02] LABS: Hemoglobin A1c 5.6 % (4.2-6.3)
[2019-08-07 19:05] LABS: Squamous Epithelial Cells - UA 0-5 SEEN /hpf (0-5)
[2019-08-07 19:06] LABS: Mucous, Urine 1+ /hpf (<or=2+)
[2019-08-07 19:07] LABS: White Blood Cells 0-5 SEEN /hpf (0-5)
== END ==
PROVIDERS: Family Provider Family Medicine; PCP Family Medicine; Referring Provider Family Medicine; Visit Provider Family Medicine
DX: I10 Essential (primary) hypertension (principal); R73.09 Other abnormal glucose; E78.00 Pure hypercholesterolemia, unspecified
CPT/HCPCS: 36415; 80053; 80061; 81001; 83036; 84443; 85025

== ENCOUNTER 2019-12-08 11:39 | Inpatient (IN) | payer MEDICARE, OTHER, SELFPAY ==
[2019-12-08] VITALS (9 sets, daily range): BP systolic 119–167; BP diastolic 52–86; PULSE 56–87; RESP 16–20; TEMP 36.3–36.9; O2SAT 95–99; BMI 25.3; BMI 25.2
--- NOTE | 2019-12-08 12:25 | EKG12_ITS ---
Test Reason : Blood Pressure : / mmHG Vent. Rate : 071 BPM Atrial Rate : 071 BPM P-R Int : 164 ms QRS Dur : 076 ms QT Int : 422 ms P-R-T Axes : 063 023 050 degrees QTc Int : 458 ms Normal sinus rhythm with sinus arrhythmia Normal ECG Confirmed by KEITH FRANCO, AUSTIN ([id number]), proposal editor MEREDITH ISRAEL ([id number]) on 12/10/2019 2:13:54 PM Referred By: ESPERANZA Confirmed By:TAURUS PARKER MD
--- NOTE | 2019-12-08 12:25 | RAD_ITS ---
STUDY: X-RAY CHEST REASON FOR EXAM: Male, 69 years old. CHEST PAIN TECHNIQUE: PA and lateral views of the chest. COMPARISON: 10/28/2010 FINDINGS: The lungs are clear and expanded. There is no demonstrated pleural abnormality. Normal size heart. Normal mediastinum and jc. Normal visualized pulmonary arteries. There is atherosclerotic calcification of the aortic arch with tortuosity. There are diffuse degenerative changes of the visualized thoracic spine. Normal visualized ribs, clavicles, and shoulders. There is no demonstrated abnormality of the visualized soft tissue structures of the upper abdomen. RAD/Chest PA and Lateral IMPRESSION: Stable, nonacute portable x-ray examination of the chest. Electronically Signed: Nathaniel Hernandez MD (Brooks) at 13:17 EST , Service support ,
--- NOTE | 2019-12-08 12:28 | ED.DCSUM_ITS ---
- ER Visit Summary Date of Service: 12/08/19 Chief Complaint: Chest pain History of Present Illness: The patient is a 69 M who presents with chest pain that began today. Patient states he was walking in [facility] when he felt lightheaded. Patient states that his left arm felt tingling and he started having some tingling and pain into his left chest. Patient describes the pain as aching. Patient states this lasted approximately an hour and a half. Patient states this resolves with rest. Patient states his pain was worse with walking. Currently, the patient denies any chest pain. Patient states the pain does radiate into his back. Patient denies any shortness of breath. Patient denies any nausea or vomiting. Patient denies any diaphoresis. Physical Examination: Vital signs are stable. Patient is afebrile. Patient is in no acute distress. Oral mucosa is pink and moist. Neck is supple. Trachea is midline. There is no JVD noted. Heart was regular rate and rhythm. Lungs are clear and equal bilaterally. Abdomen is soft. Bowel sounds are normal. There is no tenderness. There is no rebound or guarding noted. Skin is warm dry. Cranial nerves II through XII are intact. There are no focal motor or sensory deficits noted. Extremities are intact. There is no calf tenderness or edema. Test Results: EKG showed normal sinus rhythm with a rate of 71. There are no acute ST or T wave changes. This was unchanged compared to previous EKG dated 05/24/2018. CBC and basic metabolic profile were essentially within normal limits. Troponin was normal. PA and lateral chest x-ray was obtained. There is no acute cardiopulmonary process. This was interpreted by the radiologist and myself. Emergency Department Course and Treatment: Patient was given aspirin here. Patient is feeling better on reevaluation. Patient has no further pain at this time. Patient has a HEART score of 5 and a MAR risk score of 2. I recommended admission to the hospital. Patient is agreeable with this. Case was discussed with the hospitalist, Dr. Nicolas. He will admit the patient to his service. Disposition: Admit for observation Impression: Chest pain This note was generated with Apprion dictation software. It may contain incorrect words, spelling, and punctuation that were not noted in review of the chart prior to signing ED Disposition - Plan for ED Patient: Disposition: Acute Care [facility] Diagnosis: Chest pain Referrals: Edgar Burroughs MD [Primary Care Provider] -
[2019-12-08] MEDS: Aspirin 81 MG TAB.CHEW 324 MG PO (12:38)
[2019-12-08 12:53] LABS: Absolute Lymphocyte Count 1.54 X10^3/uL (0.83-4.51); Absolute Neutrophil Count 5.1 X10^3/uL (2.0-7.7); Basophil# 0.02 X10^3/uL; Basophil% 0.3 % (0-1); Eosinophil# 0.09 X10^3/uL; Eosinophils% 1.2 % (0-5); Hematocrit 46.5 % (40-54); Hemoglobin 15.3 g/dL (13.0-16.5); Lymphocyte # 1.54 X10^3/ul (4.0); Mean Corp Hgb Conc 32.9 g/dL (32-36); Mean Corpuscular Hgb 30.6 pg (27.0-32.0); Mean Platelet Vol. 11.5 fl (6.2-12.0); Monocyte# 0.57 X10^3/uL; Monocyte% 7.8 % (0-10); NRBC Flagged by Analyzer 0 % (0-5); Neutrophil # 5.09 X10^3/uL (2.7-7.7); Neutrophil % 69.4 % (47-70); Platelet Count 189 K/mm3 (150-450); RBC Distribution Width CV 13.4 % (11.6-14.6); RBC Distribution Width SD 45.7 fl (35.1-43.9); White Blood Count 7.3 K/mm3 (4.4-11.0)
[2019-12-08 13:06] LABS: Anion Gap 3 (5-15); BUN 12 mg/dL (7-18); BUN/Creat Ratio 14.5 RATIO (10-20); Calcium,Total 9.2 mg/dL (8.5-10.1); Chloride 111 mmol/L (98-107); Creatinine, Serum 0.83 mg/dL (0.70-1.30); EST Glomerular Filtration Rate 98 mL/min (>60); Est Glom Filt Rate - Afr Amer 118 mL/min (>60); Estimated Creatinine Clearance 80.12 ml/min; Glucose 87 mg/dL (74-106); Potassium 4.1 mmol/L (3.5-5.1); Sodium Level 141 mmol/L (136-145)
--- NOTE | 2019-12-08 14:45 | HP.PCM_ITS ---
Problem List (1) Chest pain Status: Acute History of Present Illness Date of Admission: 12/08/19 Chief Complaint: chest pain The patient is a 69 year old M in his normal state of health today. He was at [facility] and around 11 AM, felt chest pain across his chest but also just felt woozy. Was concerned and brought to the emergency room. In the emergency room, patient on a work-up including troponins and EKG which were normal. Patient had similar symptoms about 8 years ago and was diagnosed with a TIA and had a stress test at that time that was negative. Patient has been on aspirin since then. Today, patient did not have breakfast which is not unusual for him but what was unusual was the fact that he did not have his typical snack that he does. [] Past Medical History Medical History: Medical History (Last Updated 12/08/19 @ 14:[address] Nolberto Nicolas DO) TIA (transient ischemic attack) G45.9 HTN (hypertension) I10 Back pain M54.9 Allergies No Known Allergies Allergy (Verified 12/08/19 11:41) Home Medications: Ambulatory Orders Medication Instructions Recorded Aspirin [Aspir-Low] 81 mg PO DAILY 06/03/17 Ramipril [Altace] 10 mg PO DINNER 06/03/17 Surgical History: Surgical History (Last Reviewed 12/08/19 @ 14:[address] Nolberto Nicolas DO) Bladder cancer C67.9 Smoking Status: Current some day smoker - *Family History Maternal Family History: Family History (Last Updated 12/08/19 @ 14:[address] Nolberto Nicolas DO) Sister Multiple sclerosis Myocardial infarction Review of Systems Constitutional: Denies: Anorexia, Chills, Fever, Night Sweats, Malaise Eyes: Denies: Blurred vision, Double vision HEENT: Denies: Head Aches, Sinus Congestion, Sinus Drainage Cardiovascular: Reports: Chest Pain. Denies: Edema Respiratory: Reports: Shortness of Breath. Denies: Cough Gastrointestinal: Denies: Abdominal Pain, Nausea, Vomiting Genitourinary: Denies: Dysuria Musculoskeletal: Denies: Joint Pain, Joint Tenderness Skin: Denies: Rash, Wounds Neurological: Denies: Balance problems, Blurred vision, Double vision, Change in Speech Psychiatric: Denies: Anxiety, Depression Hematologic/ Lymphatic: Denies: Easy Bruising, Easy Bleeding, Hx of blood clot Comment: All review of systems were negative except as mentioned above in the history of present illness and the other review of systems. VTE Information - Inpt Only VTE Present on Admission: No VTE Mechan Device Prophylaxis: None VTE Pharm Prophylaxis ordered?: No Reason prophylaxis not ordered:: Treatment Not Indicated Patient Problems: Active and Suspected Problems (Last Updated 12/19/17 @ 09:08 by Deena Harris) Chest pain (Acute) - Physical Exam Vitals/I&O's: Vital Signs Temp Pulse Resp BP Pulse Ox 36.6 C 56 L 17 159/75 H 96 12/08/19 11:42 12/08/19 13:16 12/08/19 13:16 12/08/19 13:16 12/08/19 13:16 Oxygen Delivery Method Room Air Weight: 76.8 kg Body Mass Index (BMI) 25.3 General: Alert, Cooperative, No apparent distress HEENT: Atraumatic, Normocephalic Oral: Moist Mucosa, No Gingival or Mucosal Lesions/ Ulcerations Neck: No Nodes, Trachea Midline Lungs: Clear to auscultation, Normal air movement, No rhonchi, No wheeze, No rales Cardiovascular: Regular rate, Regular Rhythm, Normal S1, Normal S2, No murmurs Abdomen: Bowel Sounds Present, Soft, Non Tender, Non-Distended, No Hepato-s plenomegaly Extremities: No edema, No Calf Tenderness Skin: No rashes, No breakdown Psych/Mental Status: Normal Affect, Appropriate Laboratory Results 12/08/19 12:40: WBC 7.3, RBC 5.00, Hgb 15.3, Hct 46.5, MCV 93.0, MCH 30.6, MCHC 32.9, RDW Std Deviation 45.7 H, RDW Coeff of Tony 13.4, Plt Count 189, MPV 11.5, Immature Gran % (Auto) 0.300, Neut % (Auto) 69.4, Lymph % (Auto) 21.0, [place] % (Auto) 7.8, Eos % (Auto) 1.2, Baso % (Auto) 0.3, Absolute Neuts (auto) 5.1, Absolute Lymphs (auto) 1.54, Nucleated RBC % 0 12/08/19 12:40: Sodium 141, Potassium 4.1, Chloride 111 H, Carbon Dioxide 27.0, Anion Gap 3 L, BUN 12, Creatinine 0.83, Estim Creat Clear Calc 80.12, Est GFR (MDRD) Af Amer 118, Est GFR (MDRD) Non-Af 98, BUN/Creatinine Ratio 14.5, Glucose 87, Calcium 9.2, Troponin I < 0.015 Assessment/Plan All Active Problems (Last Updated 12/19/17 @ 09:08 by Deena Harris) Screen for colon cancer (Acute) Chest pain (Acute) 1. Chest pain * Atypical * Heart score of 5 and MAR score of 4 * Patient received aspirin emergency room and is already on aspirin at home which we will continue. * Personal review of EKG shows normal sinus rhythm and chest x-ray was reviewed and showed normal airways without any infiltrate nor pulmonary edema. * Plan is for a treadmill stress echocardiogram performed on the . Patient and his spouse were made aware of this. * I suspect that his symptoms may be more near vasovagal the by the fact that he did not have any food today 2. Hypertension * Fair control. Continue with SOLEDAD inhibitor 3. VTE prophylaxis: Low risk as he is observation status. 4. Advanced care planning: Discussed with the patient about CPR and what is entailed with CPR. He wishes to be full CODE STATUS at this time. Encouraged he and his to discuss these issues at a later point. Code Visit OBSV E&M: 45508 Initial observation care L2
--- NOTE | 2019-12-08 16:51 | EKG12_ITS ---
Test Reason : CHEST PAIN ADMIT Blood Pressure : / mmHG Vent. Rate : 060 BPM Atrial Rate : 060 BPM P-R Int : 162 ms QRS Dur : 072 ms QT Int : 400 ms P-R-T Axes : 067 004 024 degrees QTc Int : 400 ms Normal sinus rhythm Normal ECG Confirmed by JULIA FRANCO, BRITTANY ([id number]), editorial cartoonist MEREDITH ISRAEL ([id number]) on 12/12/2019 2:05:29 PM Referred By: HOSPITALIST Confirmed By:BRITTANY DUMONT MD
[2019-12-08] MEDS: Ramipril 10 MG Capsule PO (17:52)
[2019-12-09] VITALS (10 sets, daily range): BP systolic 126–155; BP diastolic 56–74; PULSE 54–71; RESP 15–18; TEMP 36.6–37.1; O2SAT 95–98
[2019-12-09 06:37] LABS: Cholesterol 159 mg/dL (200); High Density Lipoprotein 51 mg/dL; Triglycerides 107 mg/dL; Very Low Density Lipoprotein 21 mg/dL (5-40)
[2019-12-09] MEDS: Aspirin E.C. 81 MG Tablet PO (10:13)
--- NOTE | 2019-12-09 16:46 | PN_ITS ---
Patient Problems: Active and Suspected Problems (Last Updated 12/08/19 @ 14:[address] Nolberto Nicolas, DO) Chest pain (Acute) Reason for Visit: chest pain Subjective: No further chest pain. Vitals/I&O's: Vital Signs Temp Pulse Resp BP Pulse Ox 37.1 C 64 16 147/71 H 96 12/09/19 15:20 12/09/19 15:20 12/09/19 15:20 12/09/19 15:20 12/09/19 15:20 Oxygen Delivery Method Room Air Weight: 75.1 kg Body Mass Index (BMI) 25.2 Intake and Output for Last 24 Hours 12/07/19 12/08/19 12/09/19 23:59 23:59 23:59 Intake Total 1700 / 1700 Balance 1700 / 1700 General: Alert, Cooperative, No apparent distress HEENT: Atraumatic, Normocephalic Oral: Moist Mucosa, No Gingival or Mucosal Lesions/ Ulcerations Neck: No Nodes, Trachea Midline Lungs: Clear to auscultation, Normal air movement, No rhonchi, No wheeze Cardiovascular: Regular rate, Regular Rhythm, Normal S1, Normal S2, No murmurs Abdomen: Bowel Sounds Present, Soft, Non Tender, Non-Distended Extremities: No edema, No Calf Tenderness Laboratory Results 12/08/19 16:27: Troponin I < 0.015 12/08/19 19:11: Troponin I < 0.015 12/09/19 05:20: Triglycerides 107, Cholesterol 159, LDL Cholesterol 87, VLDL Cholesterol 21, HDL Cholesterol 51 Current Medications Acetaminophen (Tylenol) 650 mg PO Q6H PRN PRN PRN Reason: Pain Score 1-10/Temp > 100.7 F Aspirin (Ecotrin) 81 mg PO DAILY LALITHA Last Admin: 12/09/19 10:13 Dose: 81 mg Documented by: Ibuprofen (Motrin) 400 mg PO Q4H PRN PRN PRN Reason: Pain Score 1-10/Temp > 100.7 F Melatonin (Melatonin) 3 mg PO QHS PRN PRN PRN Reason: INSOMNIA Nitroglycerin (Nitrostat) 0.4 mg SUBLINGUAL Q5M PRN PRN Reason: CARDIAC/CHEST PAIN Ondansetron HCl (Zofran) 4 mg IV Q8H PRN PRN PRN Reason: NAUSEA/VOMITING Ramipril (Altace) 10 mg PO DINNER LALITHA Last Admin: 12/08/19 17:52 Dose: 10 mg Documented by: Sodium Chloride () 10 - 40 ml IV UD PRN PRN Reason: SALINE FLUSH STROKE Vital Signs/Narrative: Vital Signs Temp Pulse Resp BP Pulse Ox 12/09/19 15:20 37.1 C 64 16 147/71 H 96 Medical Necessity - Tobacco Use Smoking Status: Current some day smoker Assessment/Plan All Active Problems (Last Updated 12/08/19 @ 14:[address] Nolberto Nicolas, DO) Screen for colon cancer (Acute) Chest pain (Acute) 1. Chest pain * Atypical * Heart score of 5 and MAR score of 4 * Patient received aspirin emergency room and is already on aspirin at home which we will continue. * Personal review of EKG shows normal sinus rhythm and chest x-ray was reviewed and showed normal airways without any infiltrate nor pulmonary edema. * Plan is for a treadmill stress echocardiogram performed on the . Patient and his spouse were made aware of this. * I suspect that his symptoms may be more near vasovagal the by the fact that he did not have any food today 2. Hypertension * Fair control. Continue with SOLEDAD inhibitor 3. VTE prophylaxis: Low risk as he is observation status. 4. Advanced care planning: Discussed with the patient about CPR and what is entailed with CPR. He wishes to be full CODE STATUS at this time. Encouraged he and his to discuss these issues at a later point. Code Visit OBSV E&M: 83219 Subsequent observation care L2
[2019-12-09] MEDS: Ramipril 10 MG Capsule PO (16:52)
[2019-12-10 03:10] VITALS: BP 118/58; PULSE 57; RESP 16; TEMP 36.4; O2SAT 95
[2019-12-10 03:59] VITALS: PULSE 59
--- NOTE | 2019-12-10 05:55 | STEWCON_ITS ---
Reason For Study: CHEST PAIN Stress Results Protocol: Catalino Protocol WITH DEFINITY Maximum Predicted HR: 150 bpm Target HR: 128 bpm % Maximum Predicted HR: 105 % DurationHeart Rate Stage (mm:ss) (bpm) BP Comment BASELINE 63 152/824 CC DEFINITY FOR ENTIRE TEST STAGE 1 3:00 125 182/84 STAGE 2 2:15 157 220/80LEG DISCOMFORT, SOB RECOVERY 95 168/72 Stress Duration: 5:15 mm:ss Maximum Stress HR: 157 bpm Baseline Echocardiogram Findings The estimated ejection fraction is 65 %. Stress Echo Wall motion Data Resting WM Intermediate WM Stress WM Resting Wall Motion Wall Motion Stress No regional wall motion No regional wall motion abnormalities noted. abnormalities noted. EKG Data The baseline ECG displays normal sinus rhythm. The patient exercised according to the regular Catalino protocol for a total duration of 5:15. The maximum heart rate attained was 176 beats per minute. This was 117% of maximum predicted heart rate. The patient exercised into stage 2 of the Catalino protocol. During stress, there were no ST or T wave changes noted to suggest ischemia. No clinical angina was noted. Interpretation Summary The estimated ejection fraction is 65 %. Normal, adequate, treadmill echocardiogram. Negative for ischemia by EKG and echocardiographic criteria. No anginal symptoms noted. No arrhythmias noted. Hypertensive blood pressure response to exercise. Below average exercise capacity for age. Patient tolerate procedure well. Test terminated due to target heart rate achieved, dyspnea and leg discomfort. Decrease sensitivity due to poor echo windows requiring Definity agent. Final LVEF is 75%. No complications. The study was technically difficult. Contrast injection was performed. Ordering Physician: Nisa Nicolas Referring Physician: NISA NICOLAS Performed By: Anshul Vargas RCS
--- NOTE | 2019-12-10 05:55 | EKG12_ITS ---
Test Reason : AM EKG Blood Pressure : / mmHG Vent. Rate : 054 BPM Atrial Rate : 054 BPM P-R Int : 166 ms QRS Dur : 076 ms QT Int : 430 ms P-R-T Axes : 072 012 021 degrees QTc Int : 407 ms Sinus bradycardia Otherwise normal ECG When compared with ECG of 08-DEC-2019 17:52, MANUAL COMPARISON REQUIRED, DATA IS UNCONFIRMED Confirmed by XUAN ZHOU ([id number]), make up editor CHAPIN HERNANDEZ ([id number]) on 12/12/2019 3:14:49 PM Referred By: ELIN Confirmed By:XUAN ZHOU
[2019-12-10 06:31] VITALS: BP 140/68; PULSE 60; RESP 18; TEMP 36.6; O2SAT 97
[2019-12-10 07:01] VITALS: PULSE 56
[2019-12-10] MEDS: 0.9% Saline Lock 10 ML Syringe IV (08:58)
[2019-12-10] MEDS: Aspirin E.C. 81 MG Tablet PO (08:58)
[2019-12-10 11:32] VITALS: BP 131/80; PULSE 65; RESP 16; TEMP 36.3; O2SAT 96
--- NOTE | 2019-12-10 11:45 | CASEMGMT ---
ALEX MCCARTY assessment: Face to Face with patient for initial transition planning/care coordination assessment. ALEX MCCARTY introduced self and role at [facility], pt voices understanding and consents to assessment at this time. Pt is sitting up in bed in no distress at this time. Pt is A/Ox4 at this time and answers all questions appropriately at this time. Care providers, pharmacy, and demographics verified at this time. Presentation: Bilat arm and chest tingling with nausea Admitting dx: Chest pain PCP: Heike Specialists: Jules Amador Pharmacy: [facility] Hodge Insurance: [facility] A/B, AeR Prescription Benefit: SilverRx Living Will/HPOA: Pt has LW/HPOA and they are on file at [facility] at this time. Pt is aware that AD's are on file at this time. Pt states that his , Georgia Quick, is HPOA. LNOK: Georgia Quick, Living Arrangements: Pt states lives with in 2 story home and states no concerns at home at this time. Pt states is normally independent with ADL's. Transportation: Pt states drives self and states no transportation concerns at this time. DME/HHC: Pt states no current DME or need for any at this time. Pt states no hx of HHC or SNF in the past. Pt states no concerns with going home at time of discharge. 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 Pt states does not smoke cigarettes but does occasionally 'have a beer.' Pt states no further concerns/needs at this time. CM to follow for any further discharge planning/needs. Advised pt to ask for CM if any further questions/concerns/needs arise, voices understanding. Pt Goal: Home [place]
--- NOTE | 2019-12-10 11:48 | DCINST_ITS ---
- Discharge Diagnoses Current Active Problems: Current Active and Chronic Problems (Last Updated 12/08/19 @ 14:[address] Nolberto Nicolas, DO) Chest pain (Acute) You will use the following diet at home:: Cardiac Your food should be the consistency of: Regular Discharge Activity: May Not Drive Call your doctor if you observe: Fever of 101 or Higher, Coldness, Increased Pain, Numbness or Tingling, Inability to urinate, Inability to have a bowel m ovement, Shortness of breath, Dizziness, Fainting spells, Swelling in the ankles, Chest pain, Prolonged hiccoughing, Increased palpitations (irregular heartbeat), Calf discomfort, Uncontrolled pain Allergies/Adverse Reactions: Allergies No Known Allergies Allergy (Verified 12/08/19 11:41) Medications to take at Discharge Aspirin [Aspir-Low] 81 mg PO DAILY 06/03/17 Ramipril [Altace] 10 mg PO DINNER 06/03/17 Primary Care Physician: Edgar Burroughs MD [Primary Care Provider] - Please follow up with your Primary Care Physician in: IN 2 WEEKS Test Results: Test results from this visit will be discussed in further detail at your follow- up appointment, if applicable.
--- NOTE | 2019-12-10 11:50 | DS.PCM_ITS ---
Discharge Date and Diagnosis Date of Admission: 12/08/19 Date of Discharge: 12/10/19 - Primary Discharge Diagnosis Active and Suspected Problems (Last Updated 12/08/19 @ 14:[address] Nolberto Nicolas, DO) Chest pain (Acute) Hospital Course and Treatment Imaging Results: 12/10/19 05:55 Stress Test Echo W/Contrast [ECHO] Routine Summary of Care Provided: The patient is a 69 year old M with no significant cardiac history was admitted with chest pain is more likely musculoskeletal in origin. Patient had serial troponin enzymes negative. EKG shows normal sinus rhythm. Chest x-ray no infiltrate or any significant finding. Patient had a stress echo with contrast and reported as normal, I do. Treadmill echo negative for ischemia by EKG and echo criteria. EF 65%. Hypertension blood pressure is controlled on SOLEDAD inhibitor. Discharge medication reconciliation done. Discharge follow-up instructions completed. Discharge process discussed with the patient and all questions were answered to patient's satisfaction. Discharge medication reconciliation done. Discharge follow-up instructions completed. Discharge process discussed with the patient and all questions were answered to patient's satisfaction. Subjective: Seen and examined. 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 Complain of musculoskeletal chest pain while using his left arm. No associated shortness of breath, palpitation, diaphoresis dizziness, near-syncope or syncope. Chest pain resolved. No previous history of coronary artery disease or chronic heart or lung disease. - Physical Exam Vitals/I&O's: Vital Signs Temp Pulse Resp BP Pulse Ox 97.3 F L 65 16 131/80 H 96 12/10/19 11:32 12/10/19 11:32 12/10/19 11:32 12/10/19 11:32 12/10/19 11:32 Oxygen Delivery Method Room Air Weight: 165 lb 9.074 oz Body Mass Index (BMI) 25.2 Intake and Output for Last 24 Hours 12/08/19 12/09/19 12/10/19 23:59 23:59 23:59 Intake Total 2250 / 2550 300 / 300 Balance 2250 / 2550 300 / 300 General: Alert, Oriented x3, Cooperative HEENT: Atraumatic, PERRLA, EOMI, Normocephalic Neck: Supple, No JVD, Negative Carotid Bruits Lungs: Clear to auscultation, Normal air movement, No rhonchi, No wheeze, No rales Cardiovascular: Regular rate, Regular Rhythm, Normal S1, Normal S2, No murmurs Abdomen: Bowel Sounds Present, Soft, Non Tender, Non-Distended Extremities: No edema, Capillary Refill Less than 3 Seconds Skin: No rashes, No breakdown Musculoskeletal: No Tenderness to Palpation of Joints or Extremities, Arthritic Changes - Arthritic changes in left shoulder Neurological: Cranial nerves II-XII grossly intact Psych/Mental Status: Normal Affect, Appropriate Current Medications Acetaminophen (Tylenol) 650 mg PO Q6H PRN PRN PRN Reason: Pain Score 1-10/Temp > 100.7 F Aspirin (Ecotrin) 81 mg PO DAILY [facility] Last Admin: 12/10/19 08:58 Dose: 81 mg Documented by: Ibuprofen (Motrin) 400 mg PO Q4H PRN PRN PRN Reason: Pain Score 1-10/Temp > 100.7 F Melatonin (Melatonin) 3 mg PO QHS PRN PRN PRN Reason: INSOMNIA Nitroglycerin (Nitrostat) 0.4 mg SUBLINGUAL Q5M PRN PRN Reason: CARDIAC/CHEST PAIN Ondansetron HCl (Zofran) 4 mg IV Q8H PRN PRN PRN Reason: NAUSEA/VOMITING Ramipril (Altace) 10 mg PO DINNER [facility] Last Admin: 12/09/19 16:52 Dose: 10 mg Documented by: Sodium Chloride () 10 - 40 ml IV UD PRN PRN Reason: SALINE FLUSH Last Admin: 12/10/19 08:58 Dose: 20 ml Documented by: Discharge Activity: May Not Drive Call your doctor if you observe: Fever of 101 or Higher, Coldness, Increased Pain, Numbness or Tingling, Inability to urinate, Inability to have a bowel movement, Shortness of breath, Dizziness, Fainting spells, Swelling in the ankles, Chest pain, Prolonged hiccoughing, Increased palpitations (irregular heartbeat), Calf discomfort, Uncontrolled pain Home Medications: Medications to take at Discharge Aspirin [Aspir-Low] 81 mg PO DAILY 06/03/17 Ramipril [Altace] 10 mg PO DINNER 06/03/17 Primary Care Physician: Edgar Burroughs MD [Primary Care Provider] - Please follow up with your Primary Care Physician in: IN 2 WEEKS Medical Necessity - Tobacco Use Smoking Status: Current some day smoker Meaningful Use Info Meaningful Use Diagnoses (Choose all that apply): None applicable Code Visit OBSV E&M: 55710 Observation care discharge
--- NOTE | 2019-12-10 12:07 | PHA.DC.MR ---
Pharmacy Service has performed discharge medication reconciliation for this patient. No new medications at time of discharge review. medications reviewed are from previously reported home medications. The patient's discharge medication list was reviewed for discrepancies and discrepancies were resolved. Home Medications Aspirin [Aspir-Low] 81 mg PO DAILY 06/03/17 Ramipril [Altace] 10 mg PO DINNER 06/03/17
== END 2019-12-10 12:36 | disposition home or self-care (01) | DRG 313 ==
LOC: ED 14:28 → PCU 16:57
PROVIDERS: Emergency Provider Emergency Medicine; PCP Family Medicine; Visit Provider Internal Medicine
DX: R07.89 Other chest pain (principal); I10 Essential (primary) hypertension; Z79.82 Long term (current) use of aspirin; F17.200 Nicotine dependence, unspecified, uncomplicated
CPT/HCPCS: 36415; 71046; 80048; 80061; 84484; 85025; 93005; 93017; 93350; 99285; 99406; Q9957; A4216; C8928

== ENCOUNTER → 2020-03-27 | Outpatient (CLI) | payer MEDICARE, SELFPAY ==
[2019-12-08 16:11] VITALS: BMI 25.2
--- NOTE | 2020-03-27 | FLU_PTH ---
PATIENT: NATIVIDAD ARTIS LOC: [facility] U#:[id number] AGE/SX: 69/M ROOM: RE03/27/[address]: Dr. Justin Vicente MD : 1950 BED: DIS: 03/27/2020 SPEC #: [id number] RECD: 03/27/20 17:28 STATUS: PENELOPE REJose Miguel #: [id number] ANTONY: 03/27/20 00:[address]: Justin Vicente DEPT: CYTOLOGY RECD BY: Marsha Sykes ENTERED: 03/28/20 09:20 SP TYPE: Fluid OTHR DR: Dr. Edgar Burroughs MD Tissues: Urine Procedures: Special Stain Group II Cytospin Fluid HEADER OPERATION: Not noted PRE-OP DIAGNOSIS: Malignant neoplasm of bladder TISSUE SUBMITTED: Urine for cytology DIAGNOSIS CYTOLOGY Urine for cytology (cytospin): Rare atypical urothelial cells present. 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 CYTOLOGY STUDY Slides are reviewed. CYTOLOGY GROSS Received is 80 ml of yellow hazy fluid labeled with the patient's name and and designated per the requisition as urine. Submitted for cytology preparation. / marilin 03/28/20 TC:? CPT: 53005
[2020-03-27 17:29] LABS: Cytology, Body Fluid / CSF SEE PATHOLOGY REPORT
== END | disposition home or self-care (01) ==
PROVIDERS: PCP Family Medicine; Referring Provider Urology; Visit Provider Urology
DX: C67.1 Malignant neoplasm of dome of bladder (principal)
CPT/HCPCS: 88108; 88305; 88313

== ENCOUNTER → 2020-08-06 16:50 | Outpatient (CLI) | payer MEDICARE, OTHER, SELFPAY ==
[2019-12-08 16:11] VITALS: BMI 25.2
[2020-08-06 19:04] LABS: PSA,Total - Annual Screen 0.97 ng/mL (0.00-4.00)
== END ==
PROVIDERS: PCP Family Medicine; Referring Provider Family Medicine; Visit Provider Family Medicine
DX: Z12.5 Encounter for screening for malignant neoplasm of prostate (principal)
CPT/HCPCS: 36415; 84153; G0103

== ENCOUNTER → 2020-08-20 15:54 | Outpatient (CLI) | payer MEDICARE, OTHER, SELFPAY ==
[2019-12-08 16:11] VITALS: BMI 25.2
--- NOTE | 2020-08-20 15:58 | CT_ITS ---
STUDY: LOW DOSE CT LUNG CANCER SCREENING REASON FOR EXAM: Male, 70 years old. Current smoker. 40 pack-year history. RADIATION DOSAGE (If Supplied By Facility): CTDIvol = ( 3.02 ) mGy, DLP = ( 110.61 ) mGycm TECHNIQUE: No contrast was administered. Low dose technique was utilized (average mAS-38 and kVp 120). 1.25 mm axial source images with a slice interval of 1.25-mm were reconstructed in lung windows. 2.5 mm axial source images with a slice interval of 2.5-mm were reconstructed in lung windows. 5.0 mm axial source images with a slice interval of 5.0-mm were reconstructed in soft tissue windows. Nodule measured using lung windows on PACS and/or independent workstation with automated measurement of minimum and maximum diameter. Nodule measurement reported as average diameter rounded to the nearest whole number. Growth is defined as an increase ins size of greater than 1.5 mm. COMPARISON: Chest, 12/08/2019. NODULES: Total lung nodules (excluding granulomas): 0 Emphysema: There is diffuse emphysematous changes of lungs. Endobronchial lesion: None Aorta: Atherosclerotic changes of the thoracic aorta without aneurysm. Coronary arteries: Coronary artery calcifications. Heart: Normal in size Pulmonary artery: Normal Mediastinal nodes: None Other chest and abdominal findings: Degenerative changes of the thoracic spine. CT/Low Dose CT Lung Screening IMPRESSION: Lung-RADS category 1 - Continue annual screening with LDCT in 12 months. IMPORTANT NOTES FOR USE: ACR Lung-RADS Version 1.0 Assessment Categories Release Date: February 11, 2014 Category: Coded 0-4 bases on nodule(s) with highest degree of suspicion. Negative screen is defined as categories 1 and 2; a positive screen is defined as categories 3 and 4. Category 3 and 4A nodules that are unchanged on interval CT should be coded as category 2, and individuals returned to screening in 12 months. Category 4X: Category 3 or 4 nodules with additional imaging findings that increase the suspicion of lung cancer, such as spiculation, GGN that doubles in size in 1 year, enlarged lymph notes, etc. Category Modifiers: S (significant finding unrelated to lung cancer) and C (prior history of treated lung cancer) may be added to the 0-4 Lung-RADS Electronically Signed: Joshua Sampson DO at 16:33 EST Tel [phone], Service support ,
== END ==
PROVIDERS: PCP Family Medicine; Referring Provider Family Medicine; Visit Provider Family Medicine
DX: Z12.2 Encounter for screening for malignant neoplasm of respiratory organs (principal); F17.210 Nicotine dependence, cigarettes, uncomplicated
CPT/HCPCS: G0297

== ENCOUNTER → 2020-09-25 | Outpatient (CLI) | payer MEDICARE, OTHER, SELFPAY ==
[2019-12-08 16:11] VITALS: BMI 25.2
--- NOTE | 2020-09-25 16:00 | CYSPIN_PTH ---
PATIENT: NATIVIDAD ARTIS LOC: [facility] U#:[id number] AGE/SX: 70/M ROOM: RE09/25/[address]: Dr. Justin Vicente MD : 1950 BED: DIS: 09/25/2020 SPEC #: [id number] RECD: 09/26/20 08:40 STATUS: PENELOPE REJose Miguel #: [id number] ANTONY: 09/25/20 16:[address]: Justin Vicente DEPT: CYTOLOGY RECD BY: Amy Gaming ENTERED: 09/26/20 08:41 SP TYPE: CYSPIN FL OTHR DR: Dr. Edgar Burroughs MD Tissues: Urine Procedures: Pap Stain (control) Special Stain Group II Cytospin Fluid HEADER OPERATION: Not noted PRE-OP DIAGNOSIS: Benign neoplasm of bladder TISSUE SUBMITTED: Urine for cytology DIAGNOSIS CYTOLOGY Urine for cytology (cytospin): Rare atypical urothelial cells present. AM:marilin 09/26/20 CYTOLOGY STUDY Slides are reviewed. CYTOLOGY GROSS Received is 60 ml of yellow cloudy fluid labeled with the patient's name and and designated per the requisition as urine. Submitted for cytology preparation. / marilin 09/26/20 TC:? CPT: 00068
[2020-09-25 17:46] LABS: Cytology, Body Fluid / CSF SEE PATHOLOGY REPORT
== END | disposition home or self-care (01) ==
LOC: LABSPEC 16:35
PROVIDERS: PCP Family Medicine; Visit Provider Urology
DX: D30.3 Benign neoplasm of bladder (principal)
CPT/HCPCS: 88108; 88313

== ENCOUNTER → 2021-02-17 16:26 | Outpatient (CLI) | payer MEDICARE, OTHER, SELFPAY ==
[2019-12-08 16:11] VITALS: BMI 25.2
[2021-02-17 17:48] LABS: Absolute Lymphocyte Count 1.97 X10^3/uL (0.83-4.51); Absolute Neutrophil Count 5.5 X10^3/uL (2.0-7.7); Basophil# 0.04 X10^3/uL; Basophil% 0.5 % (0-1); Eosinophil# 0.15 X10^3/uL; Eosinophils% 1.8 % (0-5); Hematocrit 47.6 % (40-54); Hemoglobin 15.2 g/dL (13.0-16.5); Lymphocyte # 1.97 X10^3/ul (0.83-4.51); Lymphocyte % 23.7 % (19-41); Mean Corp Hgb Conc 31.9 g/dL (32-36); Mean Corpuscular Hgb 30.3 pg (27.0-32.0); Mean Corpuscular Volume 94.8 fL (80-94); Mean Platelet Vol. 12.1 fl (6.2-12.0); Monocyte# 0.65 X10^3/uL; Monocyte% 7.8 % (0-10); NRBC Flagged by Analyzer 0 % (0-5); Neutrophil # 5.49 X10^3/uL (2.7-7.7); Platelet Count 209 K/mm3 (150-450); RBC Distribution Width CV 13.9 % (11.6-14.6); RBC Distribution Width SD 48.4 fl (35.1-43.9); Red Blood Count 5.02 M/mm3 (4.6-6.2); White Blood Count 8.3 K/mm3 (4.4-11.0)
[2021-02-17 18:25] LABS: ALB/GLOB Ratio 1.3 RATIO (0.9-2.4); AST(SGOT) 23 U/L (15-37); Alanine Aminotransfer ALT/SGPT 28 U/L (16-61); Albumin, Serum 3.9 g/dL (3.2-5.0); Alkaline Phosphatase 76 U/L (45-117); Anion Gap 8 (5-15); BUN 15 mg/dL (7-18); Calcium,Total 8.7 mg/dL (8.5-10.1); Chloride 107 mmol/L (98-107); Cholesterol 173 mg/dL (200); Creatinine, Serum 0.83 mg/dL (0.70-1.30); EST Glomerular Filtration Rate 97 mL/min (>60); Est Glom Filt Rate - Afr Amer 117 mL/min (>60); Glucose 87 mg/dL (74-106); High Density Lipoprotein 53 mg/dL; Potassium 4.2 mmol/L (3.5-5.1); Protein, Total 6.9 g/dL (6.4-8.2); Sodium Level 140 mmol/L (136-145); Triglycerides 247 mg/dL; Very Low Density Lipoprotein 49 mg/dL (5-40)
== END ==
PROVIDERS: PCP Family Medicine; Referring Provider Family Medicine; Visit Provider Family Medicine
DX: I10 Essential (primary) hypertension (principal)
CPT/HCPCS: 36415; 80053; 80061; 84443; 85025

== ENCOUNTER 2021-04-27 05:57 | Emergency (ER) | payer OTHER, MEDICARE, SELFPAY ==
[2019-12-08 16:11] VITALS: BMI 25.2
[2021-04-27 05:58] VITALS: BP 155/81; PULSE 78; RESP 16; TEMP 36.6; O2SAT 98; BMI 24.0
--- NOTE | 2021-04-27 06:07 | RAD_ITS ---
STUDY: X-RAY - UNILATERAL RIBS ( RIGHT ) WITH CHEST REASON FOR EXAM: Male, 70 years old patient with chest injury. TECHNIQUE - RIBS: 4 view(s) of the ribs. TECHNIQUE - CHEST: Single PA view of the chest. COMPARISON: None. FINDINGS - RIBS: There is severe demineralization of the osseous structures which diminishes the diagnostic sensitivity of this examination. However, there is visualized rib fracture of the posterior right 11th rib. FINDINGS - CHEST: The lungs are clear and hyperexpanded. There is no demonstrated pleural abnormality. Normal size heart. Normal mediastinum and jc. Normal visualized pulmonary arteries. There is atherosclerotic calcification of the aortic arch with tortuosity. There are diffuse degenerative changes of the visualized thoracic spine. Normal visualized clavicles. There is chondrocalcinosis near the right humerus suggesting sequela of calcific tendinopathy. There is no demonstrated abnormality of the visualized soft tissue structures of the upper abdomen. RAD/Ribs Uni Min 3V w/PA Chest IMPRESSION: RIBS: Acute fracture of the posterior 11th rib. CHEST: No radiographic evidence of acute cardiopulmonary disease. Electronically Signed: Christine Whitley MD at 7:29 EDT , Service support ,
--- NOTE | 2021-04-27 06:08 | EX.ED.GENINJ ---
HPI History of Present Illness Chief Complaint: Back Informant: patient Narrative Narrative: 70-year-old male states that 4 days ago he fell at work striking his right low back. He states that he thought he was getting better. Yesterday he sat around most of the day and rested. Now he notes increased pain over the right lower ribs posteriorly. He denies any hematuria. He notes pain with coughing and movement. He notes bruising is improving. PFSH PFS Medical History Back pain HTN (hypertension) TIA (transient ischemic attack) Home Medications aspirin [Aspir-Low] 81 mg PO DAILY 06/03/17 [History Last Taken 12/07/19] ramipril [Altace] 10 mg PO DINNER 06/03/17 [History Last Taken 12/07/19] hydrocodone-acetaminophen 1 tab PO Q6H PRN PRN 3 Days #12 tablet 04/27/21 [Rx Last Taken Unknown] Allergy/AdvReac Type Severity Reaction Status Date / Time No Known Allergies Allergy Verified 12/08/19 11:41 Family History Sister Multiple sclerosis Myocardial infarction Surgical History Bladder cancer Social History Smoking Status: Current some day smoker tobacco type: cigarettes alcohol intake: current alcohol intake frequency: holidays/special occasions only ROS ROS ED Constitutional Constitutional ED: Denies chills or weight loss Eyes Eyes: Denies change in vision or diplopia ENT ENT ED: Denies ear pain, rhinorrhea or sore throat Cardiovascular Cardiovascular: Denies chest pain, orthopnea, palpitations or racing heartbeat Respiratory/Chest Respiratory/Chest: Denies cough, dyspnea or orthopnea Gastrointestinal Gastrointestinal: Denies abdominal pain, diarrhea, nausea or vomiting Genitourinary Genitourinary ED: Denies dysuria, hematuria or urinary frequency Musculoskeletal Musculoskeletal: Reports back pain; Denies arthralgias or myalgias Integumentary Denies abscess or rash Neurologic Neurologic: Denies headache(s) or weakness Psychiatric Psychiatric: Denies anxiety, depression, suicidal ideation or suicidal thoughts Endocrine Endocrinology: Denies polydipsia, polyphagia or polyuria Allergic/Immunologic Allergic/Immunologic ED: Denies mouth swelling, tongue swelling or urticaria EXAM Physical Exam Const Vital Signs: 04/27/21 05:58 Temperature 97.8 F Temperature Source Temporal Pulse Rate 78 Respiratory Rate 16 Blood Pressure 155/81 H Blood Pressure Mean 105 Pulse Ox 98 Oxygen Delivery Method Room Air Positive well nourished and well developed General Appearance ED: well developed HEENT Reports normocephalic, head/scalp atraumatic and moist mucous membranes Eyes PERRL and EOMs intact bilaterally Neck no lymphadenopathy, supple and no JVD Resp normal respiratory effort and clear to auscultation bilaterally Cardio regular rate, regular rhythm and no murmurs GI normal to inspection, nondistended, normoactive bowel sounds and non-tender Palpation: soft Back/Spine no CVA tenderness and normal ROM Back/Spine Narrative: Patient has yellow-green ecchymosis from the ninth rib to the 12th rib. There is another area of yellow-green ecchymosis just inferior to this in the lumbar musculature region. The ribs are exquisitely tender to palpation. I do not hear any rhonchi. Extremity normal to inspection General Extremety ED: Negative for edema General Extremity: Negative for edema Neuro oriented x3 and CN's II-XII intact bilaterally Sensorium / Orientation: alert Motor Exam: strength 5/5 throughout Psych mental status grossly normal Mood & Affect: Negative for depressed or tearful Skin no rashes or lesions noted and no wounds MDM MDM MDM Narrative Medical decision making narrative: Rib series was obtained. On my interpretation of these films is acute fracture of ribs 10 and 11. No hemothorax or pneumothorax noted. Patient will have pain medication written. Work restrictions given follow-up explained with Workmen's Comp. Encouraged smoking cessation. Discharge Plan Triage Chief Complaint: Back ED Provider: Solomon Boswell Dx/Rx/DC Orders Clinical Impression: Contusion of back, Contusion of rib on left side, Right rib fracture Instructions: ED Rib Fracture Prescriptions: New hydrocodone-acetaminophen [hydrocodone-acetaminophen] 1 TABLET tablet 1 tab PO Q6H PRN PRN (Reason: Pain) 3 Days Qty: 12 RF: 0 No Action aspirin [Aspir-Low] 81 MG tablet,delayed release (DR/EC) 81 mg PO DAILY RF: 0 ramipril [Altace] 10 MG capsule 10 mg PO DINNER RF: 0 Primary Care Provider: Edgar Burroughs Referrals: [facility]GROUP OF PHYSICIANS] - 3-5 Days Edgar Burroughs MD [Primary Care Provider] - Disposition Disposition: Home, Self Care
== END 2021-04-27 07:01 | disposition home or self-care (01) ==
PROVIDERS: Emergency Provider Emergency Medicine; PCP Family Medicine
DX: S22.41XA Multiple fractures of ribs, right side, initial encounter for closed fracture (principal); S20.212A Contusion of left front wall of thorax, initial encounter; S20.229A Contusion of unspecified back wall of thorax, initial encounter; W01.10XA Fall on same level from slipping, tripping and stumbling with subsequent striking against unspecified object, initial encounter; Y93.9 Activity, unspecified; Y92.9 Unspecified place or not applicable; Y99.0 Civilian activity done for income or pay; I10 Essential (primary) hypertension; F17.210 Nicotine dependence, cigarettes, uncomplicated; Z79.82 Long term (current) use of aspirin; Z79.899 Other long term (current) drug therapy; Z86.73 Personal history of transient ischemic attack (TIA), and cerebral infarction without residual deficits
CPT/HCPCS: 71101; 99282

== ENCOUNTER → 2021-08-19 16:23 | Outpatient (CLI) | payer MEDICARE, OTHER, SELFPAY ==
[2021-08-19 17:55] LABS: Absolute Lymphocyte Count 2.05 X10^3/uL (0.83-4.51); Absolute Neutrophil Count 4.8 X10^3/uL (2.0-7.7); Basophil# 0.03 X10^3/uL; Basophil% 0.4 % (0-1); Eosinophil# 0.14 X10^3/uL; Eosinophils% 1.8 % (0-5); Hematocrit 45.5 % (40-54); Hemoglobin 15.4 g/dL (13.0-16.5); Lymphocyte # 2.05 X10^3/ul (0.83-4.51); Mean Corp Hgb Conc 33.8 g/dL (32-36); Mean Corpuscular Hgb 31.6 pg (27.0-32.0); Mean Corpuscular Volume 93.4 fL (80-94); Mean Platelet Vol. 12.1 fl (6.2-12.0); Monocyte# 0.56 X10^3/uL; Monocyte% 7.4 % (0-10); NRBC Flagged by Analyzer 0 % (0-5); Neutrophil % 63.1 % (47-70); Platelet Count 197 K/mm3 (150-450); RBC Distribution Width CV 13.4 % (11.6-14.6); RBC Distribution Width SD 46.5 fl (35.1-43.9); Red Blood Count 4.87 M/mm3 (4.6-6.2); White Blood Count 7.6 K/mm3 (4.4-11.0)
[2021-08-19 19:10] LABS: ALB/GLOB Ratio 1.1 RATIO (0.9-2.4); AST(SGOT) 16 U/L (15-37); Alanine Aminotransfer ALT/SGPT 23 U/L (16-61); Albumin, Serum 3.8 g/dL (3.2-5.0); Alkaline Phosphatase 81 U/L (45-117); Anion Gap 6 (5-15); BUN 12 mg/dL (7-18); BUN/Creat Ratio 14.3 RATIO (10-20); Chloride 106 mmol/L (98-107); Cholesterol 170 mg/dL (200); Creatinine, Serum 0.84 mg/dL (0.70-1.30); EST Glomerular Filtration Rate 95 mL/min (>60); Est Glom Filt Rate - Afr Amer 116 mL/min (>60); Globulin 3.5 g/dL (2.2-4.2); Glucose 76 mg/dL (74-106); High Density Lipoprotein 60 mg/dL; Protein, Total 7.3 g/dL (6.4-8.2); Sodium Level 137 mmol/L (136-145); Thyroid Stim Hormone (TSH) 0.55 uIU/mL (0.358-3.74); Triglycerides 86 mg/dL; Very Low Density Lipoprotein 17 mg/dL (5-40)
== END ==
PROVIDERS: PCP Family Medicine; Referring Provider Family Medicine; Visit Provider Family Medicine
DX: I10 Essential (primary) hypertension (principal); F17.200 Nicotine dependence, unspecified, uncomplicated
CPT/HCPCS: 36415; 80053; 80061; 84443; 85025

== ENCOUNTER → 2022-02-17 | Outpatient (CLI) | payer MEDICARE, OTHER, SELFPAY ==
[2022-02-17 17:54] LABS: Absolute Lymphocyte Count 2.02 X10^3/uL (0.83-4.51); Absolute Neutrophil Count 4.8 X10^3/uL (2.0-7.7); Basophil# 0.03 X10^3/uL; Basophil% 0.4 % (0-1); Eosinophil# 0.14 X10^3/uL; Eosinophils% 1.9 % (0-5); Hematocrit 44.8 % (40-54); Hemoglobin 14.8 g/dL (13.0-16.5); Lymphocyte # 2.02 X10^3/ul (0.83-4.51); Lymphocyte % 26.8 % (19-41); Mean Corpuscular Hgb 31.7 pg (27.0-32.0); Mean Corpuscular Volume 95.9 fL (80-94); Mean Platelet Vol. 12.1 fl (6.2-12.0); Monocyte# 0.57 X10^3/uL; Monocyte% 7.6 % (0-10); NRBC Flagged by Analyzer 0 % (0-5); Neutrophil # 4.75 X10^3/uL (2.7-7.7); Platelet Count 182 K/mm3 (150-450); RBC Distribution Width CV 13.4 % (11.6-14.6); RBC Distribution Width SD 47.8 fl (35.1-43.9); Red Blood Count 4.67 M/mm3 (4.6-6.2); White Blood Count 7.5 K/mm3 (4.4-11.0)
[2022-02-17 18:45] LABS: ALB/GLOB Ratio 1.5 RATIO (0.9-2.4); AST(SGOT) 16 U/L (15-37); Alanine Aminotransfer ALT/SGPT 24 U/L (16-61); Albumin, Serum 3.9 g/dL (3.2-5.0); Alkaline Phosphatase 69 U/L (45-117); Anion Gap 5 (5-15); BUN 12 mg/dL (7-18); BUN/Creat Ratio 15.1 RATIO (10-20); Calcium,Total 8.9 mg/dL (8.5-10.1); Chloride 108 mmol/L (98-107); Cholesterol 173 mg/dL (200); EST Glomerular Filtration Rate 101 mL/min (>60); Est Glom Filt Rate - Afr Amer 123 mL/min (>60); Globulin 2.6 g/dL (2.2-4.2); Glucose 77 mg/dL (74-106); High Density Lipoprotein 54 mg/dL; Potassium 4.5 mmol/L (3.5-5.1); Protein, Total 6.5 g/dL (6.4-8.2); Sodium Level 139 mmol/L (136-145); Thyroid Stim Hormone (TSH) 0.53 uIU/mL (0.358-3.74); Triglycerides 138 mg/dL; Very Low Density Lipoprotein 28 mg/dL (5-40)
== END | disposition home or self-care (01) ==
LOC: MFPLAB 16:51
PROVIDERS: PCP Family Medicine; Referring Provider Family Medicine; Visit Provider Family Medicine
DX: I10 Essential (primary) hypertension (principal); F17.200 Nicotine dependence, unspecified, uncomplicated; Z12.5 Encounter for screening for malignant neoplasm of prostate
CPT/HCPCS: 36415; 80053; 80061; 84153; 84443; 85025; G0103

== ENCOUNTER → 2022-02-22 | Outpatient (CLI) | payer MEDICARE, OTHER, SELFPAY ==
--- NOTE | 2022-02-22 16:53 | CT_ITS ---
STUDY: CT CHEST WITHOUT CONTRAST- LOW DOSE SCREENING PROTOCOL REASON FOR EXAM: Male, 71 years old. pack per year history. No current symptoms of lung cancer or pulmonary infection. Shared decision-making with referring PCP documented in patient''s record. RADIATION DOSAGE (If Supplied By Facility): CTDIvol = ( 3.02 ) mGy, DLP = ( 107.59 ) mGycm TECHNIQUE: Low dose screening CT examination performed from the base of the neck to the upper abdomen. Sagittal and coronal reformatted images performed. Sagittal and coronal MIP images provided. The measurements provided are average, rounded measurements per ACR guidelines. COMPARISON: 08/20/2020 FINDINGS: Mild emphysema. There is no demonstrated pleural abnormality. Normal heart and pericardium. There are calcifications of the coronary arteries. Normal mediastinum. Normal hilar regions. Normal unenhanced pulmonary arteries. Normal aorta arch and descending thoracic aorta. Normal osseous structures. There is no demonstrated abnormality of the visualized upper abdomen. CT/Low Dose CT Lung Screening IMPRESSION: 1. No significant indeterminate incidental findings requiring additional imaging. 2. Incidental findings include calcified coronary plaque. ASSESSMENT CATEGORY: LungRADS 1 - Negative. Continue annual screening with LDCT in 12 months, per established ACR guidelines. Electronically Signed: Maik Miranda MD at 17:28 EDT ,
== END | disposition home or self-care (01) ==
LOC: CT 16:51
PROVIDERS: PCP Family Medicine; Visit Provider Family Medicine
DX: F17.210 Nicotine dependence, cigarettes, uncomplicated (principal)
CPT/HCPCS: 71271

== ENCOUNTER → 2022-08-19 | Outpatient (CLI) | payer MEDICARE, OTHER, SELFPAY ==
[2022-08-19 16:21] LABS: Bacteria 0 SEEN /hpf (None Seen); Mucous, Urine 0 SEEN /hpf (<or=2+); Red Blood Cells-Urine 0 SEEN /hpf (0-5); White Blood Cells 0 SEEN /hpf (0-5)
[2022-08-19 18:13] LABS: Color, Urine Yellow (Yellow); Glucose, Dipstick Normal (Normal); Ketone-Dipstick Negative (Negative); Leukocyte Esterase-Dipstick Negative /ul (Negative); Nitrite-Dipstick Negative (Negative); Occult Blood-Urine Negative /ul (Negative); Protein-Dipstick Negative (Negative); Urine Bilirubin Dipstick Negative (Negative); Urine Clarity Clear (Clear); Urine Urobilinogen Normal (Normal)
[2022-08-19 18:14] LABS: Absolute Lymphocyte Count 1.78 X10^3/uL (0.83-4.51); Absolute Neutrophil Count 5.4 X10^3/uL (2.0-7.7); Basophil# 0.04 X10^3/uL; Basophil% 0.5 % (0-1); Eosinophil# 0.08 X10^3/uL; Hematocrit 43.7 % (40-54); Lymphocyte # 1.78 X10^3/ul (0.83-4.51); Lymphocyte % 22.6 % (19-41); Mean Corp Hgb Conc 34.3 g/dL (32-36); Mean Corpuscular Hgb 32.4 pg (27.0-32.0); Mean Corpuscular Volume 94.4 fL (80-94); Mean Platelet Vol. 12.1 fl (6.2-12.0); Monocyte% 7.6 % (0-10); NRBC Flagged by Analyzer 0 % (0-5); Neutrophil # 5.36 X10^3/uL (2.7-7.7); Platelet Count 204 K/mm3 (150-450); RBC Distribution Width CV 13.8 % (11.6-14.6); RBC Distribution Width SD 47.4 fl (35.1-43.9); Red Blood Count 4.63 M/mm3 (4.6-6.2); White Blood Count 7.9 K/mm3 (4.4-11.0)
[2022-08-19 18:43] LABS: Squamous Epithelial Cells - UA 0-5 SEEN /hpf (0-5)
[2022-08-19 18:44] LABS: ALB/GLOB Ratio 1.3 RATIO (0.9-2.4); AST(SGOT) 17 U/L (15-37); Alanine Aminotransfer ALT/SGPT 23 U/L (16-61); Alkaline Phosphatase 65 U/L (45-117); Anion Gap 8 (5-15); BUN 14 mg/dL (7-18); BUN/Creat Ratio 16.8 RATIO (10-20); Calcium,Total 9.3 mg/dL (8.5-10.1); Chloride 107 mmol/L (98-107); Cholesterol 174 mg/dL (200); Creatinine, Serum 0.83 mg/dL (0.70-1.30); EST Glomerular Filtration Rate 96 mL/min (>60); Est Glom Filt Rate - Afr Amer 117 mL/min (>60); Globulin 3.1 g/dL (2.2-4.2); Glucose 85 mg/dL (74-106); High Density Lipoprotein 61 mg/dL; Potassium 4.1 mmol/L (3.5-5.1); Protein, Total 7.1 g/dL (6.4-8.2); Sodium Level 137 mmol/L (136-145); Thyroid Stim Hormone (TSH) 0.75 uIU/mL (0.358-3.74); Triglycerides 118 mg/dL; Very Low Density Lipoprotein 24 mg/dL (5-40)
== END | disposition home or self-care (01) ==
LOC: MFPLAB 16:19
PROVIDERS: PCP Family Medicine; Referring Provider Family Medicine; Visit Provider Family Medicine
DX: I10 Essential (primary) hypertension (principal); F17.200 Nicotine dependence, unspecified, uncomplicated
CPT/HCPCS: 36415; 80053; 80061; 81001; 84443; 85025

== ENCOUNTER → 2022-10-12 | Outpatient (CLI) | payer MEDICARE, OTHER, SELFPAY | END | disposition home or self-care (01) | LOC: LABSPEC 15:26 | PROVIDERS: PCP Family Medicine; Referring Provider Surgery; Visit Provider Surgery | DX: K40.90 Unilateral inguinal hernia, without obstruction or gangrene, not specified as recurrent (principal) | CPT/HCPCS: 87081 ==

== ENCOUNTER 2022-11-25 08:40 | Day surgery (SDC) | payer MEDICARE, OTHER, SELFPAY ==
--- NOTE | 2022-11-23 13:59 | EKG12_ITS ---
Test Reason : PRE-OP Blood Pressure : / mmHG Vent. Rate : 090 BPM Atrial Rate : 090 BPM P-R Int : 148 ms QRS Dur : 070 ms QT Int : 350 ms P-R-T Axes : 076 061 056 degrees QTc Int : 428 ms Normal sinus rhythm Normal ECG Confirmed by IRVING FRANCO, ROCCO ([id number]), digital editor MEREDITH ISRAEL ([id number]) on 11/24/2022 9:28:52 AM Referred By: Tutu Hairston Confirmed By:ROCCO VILLATORO MD
[2022-11-23 14:37] LABS: Hematocrit 43.2 % (40-54); Hemoglobin 14.7 g/dL (13.0-16.5); Mean Corpuscular Hgb 31.3 pg (27.0-32.0); Mean Corpuscular Volume 92.1 fL (80-94); Mean Platelet Vol. 11.2 fl (6.2-12.0); Platelet Count 196 K/mm3 (150-450); RBC Distribution Width CV 13.2 % (11.6-14.6); RBC Distribution Width SD 44.6 fl (35.1-43.9); Red Blood Count 4.69 M/mm3 (4.6-6.2); White Blood Count 9.1 K/mm3 (4.4-11.0)
[2022-11-23 15:48] LABS: Anion Gap 6 (5-15); BUN 16 mg/dL (7-18); BUN/Creat Ratio 18.8 RATIO (10-20); Calcium,Total 9.3 mg/dL (8.5-10.1); Chloride 106 mmol/L (98-107); Creatinine, Serum 0.85 mg/dL (0.70-1.30); EST Glomerular Filtration Rate 94 mL/min (>60); Est Glom Filt Rate - Afr Amer 113 mL/min (>60); Glucose 87 mg/dL (74-106); Potassium 3.7 mmol/L (3.5-5.1); Sodium Level 138 mmol/L (136-145)
[2022-11-25 09:13] VITALS: BP 136/52; PULSE 71; RESP 16; TEMP 36.8; O2SAT 97; BMI 23.4
[2022-11-25] MEDS: Lactated Ringers 1,000 ML 15 ML IV (09:30)
--- NOTE | 2022-11-25 10:04 | PCM.HP.BLA ---
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 Alcohol use Arthritis Back pain Cancer Closed fracture of two ribs of right side Contusion of lower back Contusion of right chest wall History of stress test HTN (hypertension) Hx of fracture of wrist Hx of reduction of nasal fracture Normal stress echocardiogram Smoker TIA (transient ischemic attack) Wears glasses Surgical History? Bladder cancer Hx of colonoscopy Hx of eye surgery Hx of surgical procedure Hx of transurethral resection of prostate Family History? Sister Multiple sclerosis Myocardial infarction Social History? Smoking Status:? Current some day smoker tobacco type: cigarettes alcohol intake:? current alcohol intake frequency: holidays/special occasions only HPI HPI Surgical H&P: Yes HPI: Patient is a 72 y/o M I am seeing for an update history and physical for an elective left inguinal hernia repair. Patient denies any recent illnesses or hospitalizations. Patient denies any changes in medications. He has been using the Mupirocin ointment in each nares twice daily. Patient's MRSA swab was negative on 10/12/22. Patient has also started Flomax which has improved his stream. Patient notes he is almost out of Flomax at this time. Patient denies any cardiac or pulmonary history. Patient's previous history per Dr. Hairston: 72-year-old gentleman is referred by Dr Edgar Burroughs for surgical consultation regarding a left inguinal hernia and a written copy of my surgical consult recommendations will return to him.? By report the patient has a history of tobacco abuse and urinary bladder cancer.? He is more recently noticed a bulge in his left groin.? He is on low-dose aspirin.Multiple years ago apparently had a TIA.? He has not had any recurrence.? He has been on the low-dose aspirin ever since.? He works for [employer].? He has done so all his life.? He does a significant mount of heavy lifting and straining.? 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 He is a chronic lifelong cigarette smoker and with the extra stress at home he states that he does continue to smoke.? He has noticed a bulging in his left groin.? He is asked for relief at work to do less straining.? It is of note that he is age 72.? He states that he could retire but he does not look forward to the boredom at home. ROS General General: No weight change, appetite, fatigue, colon cancer, breast cancer or weakness HEENT HEENT: Yes eye injury and eye surgery; No difficulty swallowing, swollen glands or hoarseness Endo Endocrine: No thyroid disease, diabetes mellitus, thyroid cancer, Hair loss, heat intolerance or cold intolerance Skin Skin: No rash or changing moles Breast Breast: No left breast lump, right breast lump, nipple discharge, breast pain, abnormal mammogram, abnormal US or breast enlargement Musc Musculoskeletal: No back problems, arthritis, rheumatoid arthritis, gout or joint pain Cardio Cardiovascular: Yes high blood pressure; No murmur, pacemaker, heart disease, atrial fibrillation, heart attack, heart stent, palpitations, shortness of breat with exertion or chest pain Psych Psychiatric: No depression, anxiety or hearing voices Resp Respiratory: No shortness of breath, No sleep apnea, Yes cough, No COPD, No asthma, No emphysema and No wheezing Gastro Gastrointestinal: No abdominal pain, No nausea or vomiting, No diarrhea, No constipation, No blood in stool, No acid reflux, No hemorrhoids, No ulcers, No gallbladder problem and No black,tarry stools Pramod Hematologic: No blood thinners, No blood disorders, No bleeding, No anemia and No blood clots Neuro Neurologic: No system reviewed and no additional complaints, except as documented, No as per HPI, No abnormal gait, No abnormal hearing, No abnormal movements, No abnormal speech, No behavioral changes, No burning sensations, No confusion, No convulsions, No disequilibrium, No dizziness, No localized weakness, No frequent falls, No headache(s), No lack of coordination, No loss of vision, No memory loss, No numbness, No other visual disturbances, No radicular pain, No restless legs, No sensory deficit, No syncope, No tingling, No tremor(s), No weakness and No other Exam Const General: cooperative, healthy appearing, comfortable and no acute distress [facility] Head: normal to inspection Eyes General: appearance normal, both eyes and all related structures Neck Neck: normal visual inspection Neck mass: No Resp Effort & Inspection: normal respiratory effort Auscultation: clear to auscultation bilaterally Cardio Rate: regular rate Rhythm: regular rhythm GI Inspection: normal to inspection Palpation: soft and hernia (Left inguinal hernia) Auscultation: normal bowel sounds Musc Cervical Spine: normal cervical lordosis Skin General: no rashes or lesions noted Neuro General: no focal motor deficits and CN's II-XI intact bilaterally Extrem General: normal to inspection Psych Appearance: grossly normal Affect: normal affect Assessment and Plan Assessment and Plan (1) Inguinal hernia of left side without obstruction or gangrene: ?Status:?Acute ?Plan: Dr. Hairston will plan to perform a laparoscopic left inguinal hernia repair with mesh. Procedure details, risks and benefits have been explained. Patient will start washing with the [employer] body wash during his showers today. Patient has had the opportunity to ask and have questions answered. Patient verbally understands and agrees with the plan. I will prescribe 14 more tablets for Flomax to continue post-operatively. He has the post-operative instructions for hernia surgery. ? Medications: Refilled tamsulosin (Flomax) ?? Take one capsule by mouth Nightly. 0.4 mg? PO QHS 14 caps 0RF ? I have examined the patient and the H&P has been reviewed. There are no clinical changes since date of exam. Tutu Hairston M.D., F.A.C.S.
--- NOTE | 2022-11-25 10:05 | DCINST_ITS ---
Discharge Instructions Procedure General Surgery Diet Discharge Diet: Light diet - advance as tolerated (if you have questions about your diet instructions, please talk to you doctor.) Activity Discharge Activity: May Not Drive (for 3-5 days or while taking narcotic pain medicine.) May shower in (days): 1 Lifting Restrictions: 10 pounds Dressing / Incision Call your doctor if your incision/area has: Continuous Slow Oozing, Sudden Increased Bleeding, Increased Pain/ Swelling, Increased Redness and Foul Smelling Discharge Call your doctor if you observe: Fever of 101 or Higher Suture Line Care: Avoid Pulling/Pushing and Avoid Pinching/Bending Additional Dressing/Incision Instructions:: Change or remove dressing in 4 days. Leave steri-strips in place for 1 week. Follow Up Care Please Follow Up With: Tutu Hairston MD When: Call [phone] to make an appointment to be seen in about 10 days. Test Results: Test results from this visit will be discussed in further detail at your follow- up appointment, if applicable. Discharge Plan Admission Attending Provider: Tutu Hairston Primary Care Provider: Edgar Burroughs Discharge Orders/Prescriptions Prescriptions: No Action mupirocin 2 % ointment 1 applic topical BID Qty: 15 0RF Rx Instructions: Apply small amount to each nares twice daily tamsulosin [Flomax] 0.4 mg capsule 0.4 mg PO QHS Qty: 14 0RF Rx Instructions: Take one capsule by mouth Nightly. aspirin [Aspir-Low] 81 MG tablet,delayed release (DR/EC) 81 mg PO DAILY Label Comments: WAS TOLD TO STOP 5 DAYS PRE OP-LAST DOSE 11/19/22 ramipril [Altace] 10 MG capsule 20 mg PO DINNER Label Comments: BP Referrals / Follow Up: Edgar Burroughs MD [Primary Care Provider] - Disposition Disposition (needs filled in before D/C Order can be placed): Home, Self Care
[2022-11-25] MEDS: Cefazolin 2 GM in 0.9% Normal Saline 100 ML IV (11:51)
[2022-11-25] MEDS: Bupivacaine Mpf 0.5% 30 ML VIAL (12:04)
--- NOTE | 2022-11-25 13:07 | OP.PCM_ITS ---
Report of Operation Date of Procedure: 11/25/22 Pre-Operative Diagnosis: Symptomatic left inguinal hernia Post-Operative Diagnosis: Symptomatic direct and indirect left inguinal hernias Extensive retropubic inflammatory change and effusions Surgery/Procedure Performed:: Laparoscopic left inguinal herniorrhaphy with Bard 3D max large mesh, lot [id number], reference [id number], expiry date 07/14/2027 Description of Surgical Findings:: Timeout and informed consent was obtained. 72-year-old gentleman was taken to the operating placed on table underwent general endotracheal ovation esthesia. Ancef 2 g were given intravenously. The abdomen was sterilely prepped and draped. 0.5% Marcaine was used as a local anesthetic without the procedure a total of 30 cc was used. Skin sites were. Excised. A vertical infraumbilical incision was created holding sutures of 0 Vicryl placed varies needle inserted saline drop test performed the abdomen was insufflated with CO2 to a pressure of 10 mmHg pressure. 10 mm trocar inserted. 10 mm laparoscope inserted. No evidence or trocar injuries. There is evidence of chest the slight start of an indirect hernia on the right. There was evidence of a direct and indirect hernia on the left. 5 mm trocars were placed in the right left lower quadrant. Under laparoscopic visualization a ilioinguinal nerve block was performed on the left. The peritoneum was incised medial and superior to the internal ring and carried laterally. Dissection ensued. The lateral dissection was very fast cell and I was able to dissect free the indirect and direct hernia rather easily however then the dissection became impossible. There was dense adherent of the peritoneum to the mid pubic area and anterior abdominal wall. Was able to get visualization of the left crura of the pubic bone. Could not get further medial dissection. I did have a degree of clearance though upon the medial direct defect. I fully dissected the to allow for placement of the mesh. I selected a large Bard 3D max placed in place but it did not fit due to the lack of extensive medial dissection. I further dissected laterally then I had to remove the mesh and downsize it by approximately 7 mm by excising the superior curve. Then I replaced the mesh and had it now cover the direct indirect area and overlying as much as I could medially. I used secure strap to secure it to the pubic tubercle and fascia immediately as I then went superiorly and laterally. [place] that I had both defects areas now covered I did place extra secure strap immediately for securement. [place] that I had as good of coverage of the defect areas as possible from this approach. I used the peritoneum to cover the mesh and got complete obliteration using secure strap to secure it as well as several Hem-o-pantera clips. Complete obliteration to the mesh was achieved. The abdomen was allowed to deflate of the CO2. The fascia at the umbilicus probably noted 0 Vicryl [id number] suture. Skin edges approximated Steri- Strips Telfa OpSite dressings. Sponge and instrument and needle counts were reported to the surgeon to be correct. Blood loss minimal. He tolerated the procedure well there is no apparent complication. He was taken to the recovery room in satisfactory addition. Specimens none. Drains none. Blood loss minimal. If the patient requires future treatment on the right I would recommend an open approach. Tutu Hairston M.D., F.A.C.S. Surgeon: Tutu Hairston Type of Anesthesia: General and Local Anesthesiologist: Devin Haynes
[2022-11-25 13:19] VITALS: BP 136/52; BP 140/68; PULSE 84; RESP 16; TEMP 36.2; O2SAT 95
[2022-11-25 13:30] VITALS: BP 128/60; BP 136/52; PULSE 72; RESP 16; O2SAT 96
[2022-11-25 13:45] VITALS: BP 134/62; BP 136/52; PULSE 70; RESP 16; TEMP 36.6; O2SAT 96
[2022-11-25] MEDS: HYDROcodone Bitartrate/Apap 5/325 Tablet PO (14:15)
[2022-11-25 14:45] VITALS: BP 136/52; BP 136/54; PULSE 61; RESP 16; TEMP 37.4; O2SAT 94
== END 2022-11-25 15:04 | disposition home or self-care (01) ==
LOC: SDC 08:43 → AC 08:44
PROVIDERS: PCP Family Medicine; Referring Provider Surgery; Visit Provider Surgery
PROC: (CPT 49650; principal; 2022-11-25 10:40)
DX: K40.90 Unilateral inguinal hernia, without obstruction or gangrene, not specified as recurrent (principal); I10 Essential (primary) hypertension; Z79.82 Long term (current) use of aspirin; Z79.899 Other long term (current) drug therapy; F17.210 Nicotine dependence, cigarettes, uncomplicated; Z86.73 Personal history of transient ischemic attack (TIA), and cerebral infarction without residual deficits
CPT/HCPCS: 49650; 36415; 80048; 85027; 93005; J7120; C1781; J2405

== ENCOUNTER → 2023-03-11 | Outpatient (CLI) | payer MEDICARE, OTHER, SELFPAY ==
[2023-03-11 15:10] LABS: Bacteria 0 SEEN /hpf (None Seen); Mucous, Urine 0 SEEN /hpf (<or=2+); Red Blood Cells-Urine 0 SEEN /hpf (0-5); Squamous Epithelial Cells - UA 0 SEEN /hpf (0-5); White Blood Cells 0 SEEN /hpf (0-5)
[2023-03-11 17:33] LABS: Absolute Lymphocyte Count 1.81 X10^3/uL (0.83-4.51); Absolute Neutrophil Count 6.7 X10^3/uL (2.0-7.7); Basophil# 0.04 X10^3/uL; Basophil% 0.4 % (0-1); Color, Urine Yellow (Yellow); Eosinophil# 0.08 X10^3/uL; Eosinophils% 0.9 % (0-5); Glucose, Dipstick Normal (Normal); Hematocrit 45.1 % (40-54); Hemoglobin 14.8 g/dL (13.0-16.5); Ketone-Dipstick Negative (Negative); Leukocyte Esterase-Dipstick Negative /ul (Negative); Lymphocyte # 1.81 X10^3/ul (0.83-4.51); Lymphocyte % 19.5 % (19-41); Mean Corp Hgb Conc 32.8 g/dL (32-36); Mean Corpuscular Hgb 31.6 pg (27.0-32.0); Mean Corpuscular Volume 96.2 fL (80-94); Mean Platelet Vol. 11.7 fl (6.2-12.0); Monocyte# 0.65 X10^3/uL; NRBC Flagged by Analyzer 0 % (0-5); Neutrophil # 6.67 X10^3/uL (2.7-7.7); Neutrophil % 71.9 % (47-70); Nitrite-Dipstick Negative (Negative); Occult Blood-Urine Negative /ul (Negative); Platelet Count 212 K/mm3 (150-450); Protein-Dipstick Negative (Negative); RBC Distribution Width CV 14.4 % (11.6-14.6); RBC Distribution Width SD 51.2 fl (35.1-43.9); Red Blood Count 4.69 M/mm3 (4.6-6.2); Urine Bilirubin Dipstick Negative (Negative); Urine Clarity Clear (Clear); Urine Urobilinogen Normal (Normal); Urine pH 6.5 (5.0 - 8.0); White Blood Count 9.3 K/mm3 (4.4-11.0)
[2023-03-11 18:11] LABS: ALB/GLOB Ratio 1.2 RATIO (0.9-2.4); AST(SGOT) 21 U/L (15-37); Alanine Aminotransfer ALT/SGPT 31 U/L (16-61); Albumin, Serum 3.8 g/dL (3.2-5.0); Alkaline Phosphatase 70 U/L (45-117); Anion Gap 5 (5-15); BUN 15 mg/dL (7-18); BUN/Creat Ratio 16.5 RATIO (10-20); Calcium,Total 9.1 mg/dL (8.5-10.1); Chloride 107 mmol/L (98-107); Cholesterol 186 mg/dL (200); Creatinine, Serum 0.91 mg/dL (0.70-1.30); EST Glomerular Filtration Rate 87 mL/min (>60); Est Glom Filt Rate - Afr Amer 105 mL/min (>60); Globulin 3.2 g/dL (2.2-4.2); Glucose 105 mg/dL (74-106); High Density Lipoprotein 53 mg/dL; PSA,Total - Annual Screen 1.09 ng/mL (0.00-4.00); Potassium 4.7 mmol/L (3.5-5.1); Sodium Level 141 mmol/L (136-145); Triglycerides 449 mg/dL
== END | disposition home or self-care (01) ==
LOC: MFPLAB 15:03
PROVIDERS: PCP Family Medicine; Visit Provider Family Medicine
DX: I10 Essential (primary) hypertension (principal); F17.200 Nicotine dependence, unspecified, uncomplicated; Z12.5 Encounter for screening for malignant neoplasm of prostate
CPT/HCPCS: 36415; 80053; 80061; 81001; 84153; 84443; 85025; G0103

== ENCOUNTER → 2023-03-18 | Outpatient (CLI) | payer MEDICARE, OTHER, SELFPAY ==
--- NOTE | 2023-03-18 15:47 | CT_ITS ---
INDICATION: smoker EXAMINATION: CT CHEST WITHOUT CONTRAST - CT Low Dose CT Chest for Lung Cancer Screening TECHNIQUE: Helically acquired images were obtained of the chest with sagittal and coronal reconstructed images. Low-dose technique was utilized. Individualized dose optimization techniques were used for this CT. COMPARISON: 02/22/2022 CT. FINDINGS: LUNGS, PLEURA AND LARGE AIRWAYS: No consolidation or edema. No pulmonary nodule. No pleural effusion. No pneumothorax. Mild centrilobular emphysematous changes. THYROID: Unremarkable. HEART AND PERICARDIUM: Coronary artery calcifications are present. No pericardial effusion. MEDIASTINUM AND KIET: No mediastinal or hilar adenopathy. Esophagus is unremarkable. No hiatal hernia. VESSELS: No thoracic aortic aneurysm. UPPER ABDOMEN: The visualized upper abdomen is unremarkable. BONES: No acute abnormality. Chronic right rib fractures. CT/Low Dose CT Lung Screening IMPRESSION: 1. No pulmonary nodule. No evidence of acute cardiopulmonary disease. 2. LungRADS 1 - Negative. Continue annual screening with LDCT in 12 months, per established ACR guidelines. Electronically Signed: Gerry Ramos DO at 1:44 EDT ,
== END | disposition home or self-care (01) ==
LOC: CT 15:44
PROVIDERS: PCP Family Medicine; Referring Provider Family Medicine; Visit Provider Family Medicine
DX: F17.210 Nicotine dependence, cigarettes, uncomplicated (principal)
CPT/HCPCS: 71271

== ENCOUNTER → 2023-03-24 | Outpatient (CLI) | payer MEDICARE, OTHER, SELFPAY ==
[2023-03-24 18:08] LABS: Cholesterol 196 mg/dL (200); High Density Lipoprotein 58 mg/dL; Triglycerides 133 mg/dL; Very Low Density Lipoprotein 27 mg/dL (5-40)
[2023-03-24 18:18] LABS: Hemoglobin A1c 5.5 % (3.8-5.6)
== END | disposition home or self-care (01) ==
LOC: MFPLAB 14:26
PROVIDERS: PCP Family Medicine; Visit Provider Family Medicine
DX: R73.09 Other abnormal glucose (principal); E78.5 Hyperlipidemia, unspecified
CPT/HCPCS: 36415; 80061; 83036

== ENCOUNTER 2023-08-06 16:44 | Emergency (ER) | payer MEDICARE, OTHER, SELFPAY ==
[2023-08-06 16:44] VITALS: BP 200/81; PULSE 90; RESP 16; TEMP 36.1; O2SAT 100; BMI 23.7
[2023-08-06 16:53] VITALS: BP 183/80; PULSE 82; RESP 14; O2SAT 98
--- NOTE | 2023-08-06 16:57 | EX.ED.DYSGE1 ---
HPI <SHANIKA Victoria - Last Filed: 08/06/23 20:01> History of Present Illness Chief Complaint: Hypertension Narrative Narrative: Patient presenting today due to elevated blood pressure. He reports that he checks his blood pressure every afternoon and noticed that it was high this afternoon at 193/88. He does take ramipril daily and did take it today. He wanted to come in to be evaluated. He denies any headache, visual changes, chest pain, nausea, and shortness of breath. PMH includes hypertension. PFSH <SHANIKA Victoria - Last Filed: 08/06/23 20:01> PFSH Medical History Alcohol use Arthritis Back pain Cancer Closed fracture of two ribs of right side Contusion of lower back Contusion of right chest wall History of stress test HTN (hypertension) Hx of fracture of wrist Hx of reduction of nasal fracture Normal stress echocardiogram Smoker TIA (transient ischemic attack) Wears glasses Home Medications aspirin 81 mg tablet,delayed release (Aspir-Low) 81 mg PO DAILY HEART HEALTH 06/03/17 [History Last Taken 12/07/19] ramipril 10 mg capsule (Altace) 20 mg PO DINNER 06/03/17 [History Last Taken 12/07/19] mupirocin 2 % topical ointment 1 applic topical BID #15 grams 10/12/22 [Rx Last Taken Unknown] tamsulosin 0.4 mg capsule (Flomax) 0.4 mg PO QHS #14 caps 11/22/22 [Rx Last Taken Unknown] hydrocodone-acetaminophen 5-325mg 5mg-325mg 1 tab PO Q6H PRN pain 3 days #8 tabs 11/25/22 [Rx Last Taken Unknown] Allergy/AdvReac Type Severity Reaction Status Date / Time No Known Allergies Allergy Verified 08/06/23 16:46 Family History Sister Multiple sclerosis Myocardial infarction Surgical History Bladder cancer Hx of colonoscopy Hx of eye surgery Hx of surgical procedure Hx of transurethral resection of prostate Social History Smoking Status: Current some day smoker tobacco type: cigarettes alcohol intake: current alcohol intake frequency: holidays/special occasions only ROS <SHANIKA Victoria - Last Filed: 08/06/23 20:01> ROS ED Constitutional Constitutional ED: Denies chills or fever(s) Eyes Eyes: Denies blurry vision or change in vision Cardiovascular Cardiovascular: Denies chest pain or palpitations Respiratory/Chest Respiratory/Chest: Denies cough or dyspnea Gastrointestinal Gastrointestinal: Denies abdominal pain, nausea or vomiting Musculoskeletal Musculoskeletal: Denies arthralgias or myalgias Neurologic Neurologic: Denies confusion, dizziness, paresthesias or weakness Psychiatric Psychiatric: Denies anxiety, depression, suicidal ideation or suicidal thoughts Allergic/Immunologic Allergic/Immunologic ED: Denies lip swelling, mouth swelling or urticaria EXAM <SHANIKA Victoria - Last Filed: 08/06/23 20:01> Physical Exam Const Vital Signs: 08/06/23 16:44 08/06/23 16:53 08/06/23 16:55 Temperature 97.0 F L Temperature Source Temporal Pulse Rate 90 82 Respiratory Rate 16 14 Respiratory Effort Normal Respiratory Pattern Normal Blood Pressure 200/81 H 183/80 H Blood Pressure Mean 120 114 Pulse Ox 100 98 Oxygen Delivery Method Room Air Room Air 08/06/23 17:24 08/06/23 17:05 Temperature Temperature Source Pulse Rate 78 78 Respiratory Rate 20 H 20 H Respiratory Effort Respiratory Pattern Blood Pressure 182/76 H 182/76 H Blood Pressure Mean 111 111 Pulse Ox 97 97 Oxygen Delivery Method Positive well nourished, well developed and no apparent distress General Appearance ED: well developed HEENT Reports normocephalic and head/scalp atraumatic Mouth ED: Yes moist mucous membranes normal Eyes PERRL and EOMs intact bilaterally Neck full ROM and supple Chest Wall inspection of chest normal Resp normal respiratory effort and clear to auscultation bilaterally Cardio regular rate and regular rhythm GI soft to palpation, non-tender, non-distended and no masses Back/Spine normal ROM and normal to inspection Extremity normal to inspection and full ROM Neuro oriented x3, CN's II-XII intact bilaterally, moves all extremities, no focal motor deficits and no sensory deficits noted Sensorium / Orientation: awake and alert Psych mental status grossly normal and thought process normal Skin no rashes or lesions noted and no wounds <Dr. Abdoul Reveles MD - Last Filed: 08/06/23 17:24> Physical Exam Const Vital Signs: 08/06/23 16:44 08/06/23 16:53 08/06/23 16:55 Temperature 97.0 F L Temperature Source Temporal Pulse Rate 90 82 Respiratory Rate 16 14 Respiratory Effort Normal Respiratory Pattern Normal Blood Pressure 200/81 H 183/80 H Blood Pressure Mean 120 114 Pulse Ox 100 98 Oxygen Delivery Method Room Air Room Air 08/06/23 17:24 08/06/23 17:05 Temperature Temperature Source Pulse Rate 78 78 Respiratory Rate 20 H 20 H Respiratory Effort Respiratory Pattern Blood Pressure 182/76 H 182/76 H Blood Pressure Mean 111 111 Pulse Ox 97 97 Oxygen Delivery Method MDM <SHANIKA Victoria - Last Filed: 08/06/23 20:01> [facility] Narrative Medical decision making narrative: Patient presenting today due to elevated blood pressure that he noticed this afternoon. Pressure daily. He has a history of hypertension and takes ramipril which she took today. His current blood pressure is 182/76, he is well-appearing and in no acute distress. He does not have any headache, chest pain, shortness of breath, visual changes, dizziness, or any symptoms that would indicate the need for a further work-up. I have encouraged him to begin keeping track of his blood pressure over the next few days and to follow-up with his PCP to see if any medication adjustments need to be made. He is to take an extra dose of his blood pressure medication tonight. He will be discharged home in stable condition and is comfortable with plan. I have personally performed a face to face assessment of the patient and have reviewed the NAVIN Note. I performed a substantive portion of the visit including all aspects of the following. My ford findings include: History is 73-year-old male acute on chronic hypertension. Patient takes Altace 20 mg daily. He denies any symptoms such as headache, chest pain or shortness of breath. Exam is [72-year-old male no acute distress current blood pressure is 182/76. He does not look septic toxic is no distress. Daughter present in room. H EENT exam unremarkable. Lungs clear. Heart regular rate and rhythm no murmur. Chest wall nontender. Abdomen soft nontender. Moving all 4 extremities. Nontender no edema. Neurologically is awake and alert. Answering questions and following commands. No focal motor deficits.] Medical Decision Making [73-year-old male with acute on chronic hypertension. Normal exam. No symptoms. He will be discharged home to take an extra dose of his blood pressure medication tonight. Log his blood pressures twice daily and follow-up with his physician to see if they need to change the medication or alter the dose.] Other additions or changes: [None] <Dr. Abdoul Reveles MD - Last Filed: 08/06/23 17:24> [facility] MDM Narrative Medical decision making narrative: I have personally performed a face to face assessment of the patient and have reviewed the NAVIN Note. I performed a substantive portion of the visit including all aspects of the following. My ford findings include: History is 73-year-old male acute on chronic hypertension. Patient takes Altace 20 mg daily. He denies any symptoms such as headache, chest pain or shortness of breath. Exam is [72-year-old male no acute distress current blood pressure is 182/76. He does not look septic toxic is no distress. Daughter present in room. H EENT exam unremarkable. Lungs clear. Heart regular rate and rhythm no murmur. Chest wall nontender. Abdomen soft nontender. Moving all 4 extremities. Nontender no edema. Neurologically is awake and alert. Answering questions and following commands. No focal motor deficits.] Medical Decision Making [73-year-old male with acute on chronic hypertension. Normal exam. No symptoms. He will be discharged home to take an extra dose of his blood pressure medication tonight. Log his blood pressures twice daily and follow-up with his physician to see if they need to change the medication or alter the dose.] Other additions or changes: [None] History & Record Review Discussion w/independent historian: Patient and Family Additional record(s) reviewed:: Prior inpatient record, Prior outpatient record, Prior ED visit and Prior labs Discharge Plan Triage Chief Complaint: Hypertension ED Midlevel Provider: Cristina Romero ED Provider: Abdoul Reveles Dx/Rx/DC Orders Clinical Impression: Chronic hypertension Instructions: ED High Blood Pressure Hypertension Prescriptions: No Action mupirocin 2 % ointment 1 applic topical BID Qty: 15 0RF Rx Instructions: Apply small amount to each nares twice daily tamsulosin [Flomax] 0.4 mg capsule 0.4 mg PO QHS Qty: 14 0RF Rx Instructions: Take one capsule by mouth Nightly. aspirin [Aspir-Low] 81 MG tablet,delayed release (DR/EC) 81 mg PO DAILY Patient Comments: WAS TOLD TO STOP 5 DAYS PRE OP-LAST DOSE 11/19/22 ramipril [Altace] 10 MG capsule 20 mg PO DINNER Patient Comments: BP hydrocodone-acetaminophen 5-325 mg tablet 1 tab PO Q6H PRN (Reason: pain) 3 Days Qty: 8 0RF Primary Care Provider: Edgar Burroughs Referrals: Edgar Burroughs MD [Primary Care Provider] - 5-7 Days Activity Restrictions/Additional Instructions: Please follow-up with your PCP, begin recording your blood pressure twice a day to show your PCP. You can take an extra dose of your blood pressure medications this evening. Disposition Disposition: Home, Self Care Discharge Date/Time: 08/06/23 17:30
[2023-08-06 17:05] VITALS: BP 182/76; PULSE 78; RESP 20; O2SAT 97
[2023-08-06 17:24] VITALS: BP 182/76; PULSE 78; RESP 20; O2SAT 97
== END 2023-08-06 17:30 | disposition home or self-care (01) ==
LOC: ED 17:26
PROVIDERS: Emergency Provider Emergency Medicine; PCP Family Medicine; Visit Provider Emergency Medicine
DX: I10 Essential (primary) hypertension (principal); F17.210 Nicotine dependence, cigarettes, uncomplicated; Z79.82 Long term (current) use of aspirin; Z79.899 Other long term (current) drug therapy
CPT/HCPCS: 99282

== ENCOUNTER → 2023-08-10 | Outpatient (CLI) | payer MEDICARE, OTHER, SELFPAY ==
[2023-08-10 16:40] LABS: Bacteria 0 SEEN /hpf (None Seen); Mucous, Urine 0 SEEN /hpf (<or=2+); Red Blood Cells-Urine 0 SEEN /hpf (0-5); Squamous Epithelial Cells - UA 0 SEEN /hpf (0-5); White Blood Cells 0 SEEN /hpf (0-5)
[2023-08-10 17:38] LABS: Absolute Lymphocyte Count 1.78 X10^3/uL (0.83-4.51); Absolute Neutrophil Count 6.4 X10^3/uL (2.0-7.7); Basophil# 0.03 X10^3/uL; Basophil% 0.3 % (0-1); Eosinophil# 0.12 X10^3/uL; Eosinophils% 1.3 % (0-5); Hematocrit 44.8 % (40-54); Hemoglobin 14.3 g/dL (13.0-16.5); Lymphocyte # 1.78 X10^3/ul (0.83-4.51); Lymphocyte % 19.7 % (19-41); Mean Corp Hgb Conc 31.9 g/dL (32-36); Mean Corpuscular Hgb 30.8 pg (27.0-32.0); Mean Corpuscular Volume 96.3 fL (80-94); Mean Platelet Vol. 11.7 fl (6.2-12.0); Monocyte# 0.73 X10^3/uL; Monocyte% 8.1 % (0-10); NRBC Flagged by Analyzer 0 % (0-5); Neutrophil # 6.36 X10^3/uL (2.7-7.7); Neutrophil % 70.3 % (47-70); Platelet Count 240 K/mm3 (150-450); RBC Distribution Width CV 13.1 % (11.6-14.6); RBC Distribution Width SD 46.3 fl (35.1-43.9); Red Blood Count 4.65 M/mm3 (4.6-6.2); White Blood Count 9.1 K/mm3 (4.4-11.0)
[2023-08-10 18:03] LABS: Color, Urine Yellow (Yellow); Glucose, Dipstick Normal (Normal); Ketone-Dipstick 5 mg/dl (Negative); Leukocyte Esterase-Dipstick Negative /ul (Negative); Nitrite-Dipstick Negative (Negative); Occult Blood-Urine Negative /ul (Negative); Protein-Dipstick Negative (Negative); Specific Gravity, Urine 1.015 (1.002-1.030); Urine Bilirubin Dipstick Negative (Negative); Urine Clarity Clear (Clear); Urine Urobilinogen Normal (Normal)
[2023-08-10 18:36] LABS: ALB/GLOB Ratio 1.1 RATIO (0.9-2.4); AST(SGOT) 15 U/L (15-37); Alanine Aminotransfer ALT/SGPT 22 U/L (16-61); Albumin, Serum 3.7 g/dL (3.2-5.0); Alkaline Phosphatase 77 U/L (45-117); Anion Gap 5 (5-15); BUN 17 mg/dL (7-18); BUN/Creat Ratio 19.9 RATIO (10-20); Calcium,Total 9.3 mg/dL (8.5-10.1); Chloride 108 mmol/L (98-107); Cholesterol 182 mg/dL (200); Creatinine, Serum 0.85 mg/dL (0.70-1.30); EST Glomerular Filtration Rate 93 mL/min (>60); Est Glom Filt Rate - Afr Amer 113 mL/min (>60); Globulin 3.5 g/dL (2.2-4.2); Glucose 120 mg/dL (74-106); High Density Lipoprotein 49 mg/dL; Potassium 4.1 mmol/L (3.5-5.1); Protein, Total 7.2 g/dL (6.4-8.2); Sodium Level 138 mmol/L (136-145); Thyroid Stim Hormone (TSH) 0.51 uIU/mL (0.358-3.74); Triglycerides 235 mg/dL; Very Low Density Lipoprotein 47 mg/dL (5-40)
[2023-08-11 11:04] LABS: Hemoglobin A1c 5.2 % (3.8-5.6)
== END | disposition home or self-care (01) ==
LOC: MFPLAB 16:38
PROVIDERS: PCP Family Medicine; Visit Provider Family Medicine
DX: R73.09 Other abnormal glucose (principal); I10 Essential (primary) hypertension
CPT/HCPCS: 36415; 80053; 80061; 81001; 83036; 84443; 85025

== ENCOUNTER → 2023-09-13 | Outpatient (CLI) | payer MEDICARE, OTHER, SELFPAY ==
[2023-09-13 12:21] LABS: Anion Gap 7 (5-15); BUN 16 mg/dL (7-18); BUN/Creat Ratio 15.8 RATIO (10-20); Calcium,Total 9.1 mg/dL (8.5-10.1); Chloride 102 mmol/L (98-107); Creatinine, Serum 1.01 mg/dL (0.70-1.30); EST Glomerular Filtration Rate 77 mL/min (>60); Est Glom Filt Rate - Afr Amer 93 mL/min (>60); Glucose 101 mg/dL (74-106); Potassium 4.1 mmol/L (3.5-5.1); Sodium Level 137 mmol/L (136-145)
== END | disposition home or self-care (01) ==
LOC: MTLAB 10:35
PROVIDERS: PCP Family Medicine; Referring Provider Family Medicine; Visit Provider Family Medicine
DX: I10 Essential (primary) hypertension (principal)
CPT/HCPCS: 36415; 80048

== ENCOUNTER → 2024-01-13 | Outpatient (CLI) | payer MEDICARE, OTHER, SELFPAY ==
[2024-01-13 17:24] LABS: Absolute Lymphocyte Count 2.04 X10^3/uL (0.83-4.51); Absolute Neutrophil Count 6.9 X10^3/uL (2.0-7.7); Basophil# 0.04 X10^3/uL; Basophil% 0.4 % (0-1); Eosinophil# 0.11 X10^3/uL; Eosinophils% 1.1 % (0-5); Hematocrit 36.6 % (40-54); Hemoglobin 12.4 g/dL (13.0-16.5); Lymphocyte # 2.04 X10^3/ul (0.83-4.51); Lymphocyte % 20.8 % (19-41); Mean Corp Hgb Conc 33.9 g/dL (32-36); Mean Corpuscular Hgb 31.3 pg (27.0-32.0); Mean Corpuscular Volume 92.4 fL (80-94); Mean Platelet Vol. 11.6 fl (6.2-12.0); Monocyte# 0.71 X10^3/uL; Monocyte% 7.2 % (0-10); NRBC Flagged by Analyzer 0 % (0-5); Neutrophil # 6.88 X10^3/uL (2.7-7.7); Platelet Count 229 K/mm3 (150-450); RBC Distribution Width CV 13.4 % (11.6-14.6); RBC Distribution Width SD 46.3 fl (35.1-43.9); Red Blood Count 3.96 M/mm3 (4.6-6.2); White Blood Count 9.8 K/mm3 (4.4-11.0)
[2024-01-13 18:11] LABS: ALB/GLOB Ratio 1.2 RATIO (0.9-2.4); AST(SGOT) 21 U/L (15-37); Alanine Aminotransfer ALT/SGPT 38 U/L (16-61); Albumin, Serum 3.8 g/dL (3.2-5.0); Alkaline Phosphatase 61 U/L (45-117); Anion Gap 5 (5-15); BUN 19 mg/dL (7-18); BUN/Creat Ratio 19.4 RATIO (10-20); Calcium,Total 9.1 mg/dL (8.5-10.1); Chloride 105 mmol/L (98-107); Cholesterol 203 mg/dL (200); Creatinine, Serum 0.98 mg/dL (0.70-1.30); EST Glomerular Filtration Rate 79 mL/min (>60); Est Glom Filt Rate - Afr Amer 96 mL/min (>60); Globulin 3.3 g/dL (2.2-4.2); Glucose 112 mg/dL (74-106); High Density Lipoprotein 40 mg/dL; Magnesium 2.2 mg/dL (1.6-2.6); Potassium 3.7 mmol/L (3.5-5.1); Protein, Total 7.1 g/dL (6.4-8.2); Sodium Level 137 mmol/L (136-145); Thyroid Stim Hormone (TSH) 0.46 uIU/mL (0.358-3.74); Triglycerides 539 mg/dL
[2024-01-19 17:16] LABS: Hemoglobin A1c 5.6 % (3.8-5.6)
== END | disposition home or self-care (01) ==
LOC: MTLAB 16:46
PROVIDERS: PCP Family Medicine; Referring Provider Family Medicine; Visit Provider Family Medicine
DX: I10 Essential (primary) hypertension (principal); R73.09 Other abnormal glucose
CPT/HCPCS: 36415; 80053; 80061; 83036; 83735; 84443; 85025

== ENCOUNTER → 2024-08-03 | Outpatient (CLI) | payer MEDICARE, OTHER, SELFPAY ==
[2024-08-03 17:58] LABS: PSA,Total - Annual Screen 1.29 ng/mL (0.00-4.00)
== END | disposition home or self-care (01) ==
LOC: MTLAB 16:25
PROVIDERS: PCP Family Medicine; Referring Provider Family Medicine; Visit Provider Family Medicine
DX: Z12.5 Encounter for screening for malignant neoplasm of prostate (principal)
CPT/HCPCS: 36415; 84153; G0103

== ENCOUNTER 2024-09-21 09:03 | Day surgery (SDC) | payer MEDICARE, OTHER, SELFPAY ==
--- NOTE | 2024-09-21 09:07 | HP.PCM_ITS ---
History and Physical Date of Admission: 09/21/24 Intake Vital Signs 08/06/2316:44 08/10/2414:16 Height 5 ft 8 in 5 ft 8 in Weight: 169 lb BMI 25.7 BP 169/75 H Blood Pressure Location Rt brachial Position Sitting Respiration 16 Intake Visit Reasons: COLONOSCOPY Chief Complaint: c-scope Kettle Cleaner Required: No Is patient in pain?: No Allergies No Known Allergies Allergy (Verified 08/10/24 14:16) Medications ?Medication ?Instructions ?Recorded ?Confirmed ?Type aspirin 81 mg tablet,delayed 81 mg PO DAILY HEART HEALTH 06/03/17 08/10/24 History release (Aspir-Low) ramipril 10 mg capsule (Altace) 20 mg PO DINNER 06/03/17 08/10/24 History ascorbic acid (vitamin C) 500 mg mg PO 08/10/24 08/10/24 History capsule cholecalciferol (vitamin D3) 25 25 mcg PO QDAY 08/10/24 08/10/24 History mcg (1,000 unit) capsule hydrochlorothiazide 25 mg tablet 25 mg PO QDAY 08/10/24 08/10/24 History trazodone 50 mg tablet 50 mg PO QHS 08/10/24 08/10/24 History Have you fallen in the past year?: No PFSH Medical History (Updated 08/10/24 @ 14:[address] German Urias MD) Wears glasses Cancer Alcohol use Arthritis Smoker Normal stress echocardiogram History of stress test Hx of fracture of wrist Hx of reduction of nasal fracture Contusion of lower back Contusion of right chest wall Closed fracture of two ribs of right side TIA (transient ischemic attack) HTN (hypertension) Back pain Surgical History (Updated 08/10/24 @ 14:20 by Deena Harris) S/P inguinal hernia repair Hx of colonoscopy Hx of surgical procedure Hx of transurethral resection of prostate Hx of eye surgery Bladder cancer Family History Sister Multiple sclerosis Myocardial infarction Social History Smoking Status: Current some day smoker tobacco type: cigarettes alcohol intake: current alcohol intake frequency: holidays/special occasions only HPI HPI HPI: Patient is a 74-year-old male here for repeat colonoscopy. His last colonoscopy was 6 years ago and a tubular adenoma was removed and he was recommended to have repeat in 5. He denies abdominal pain or blood in the stool. ROS General General: No weight change, appetite, fatigue, colon cancer, breast cancer or weakness HEENT HEENT: Yes eye injury and eye surgery; No difficulty swallowing, swollen glands or hoarseness Endo Endocrine: No thyroid disease, diabetes mellitus, thyroid cancer, Hair loss, heat intolerance or cold intolerance Skin Skin: No rash or changing moles Breast Breast: No left breast lump, right breast lump, nipple discharge, breast pain, abnormal mammogram, abnormal US or breast enlargement Musc Musculoskeletal: No back problems, arthritis, rheumatoid arthritis, gout or joint pain Cardio Cardiovascular: Yes high blood pressure; No murmur, pacemaker, heart disease, atrial fibrillation, heart attack, heart stent, palpitations, shortness of breat with exertion or chest pain Psych Psychiatric: No depression, anxiety or hearing voices Resp Respiratory: Yes shortness of breath, No sleep apnea, Yes cough, No COPD, No asthma, No emphysema and No wheezing Gastro Gastrointestinal: No abdominal pain, No nausea or vomiting, No diarrhea, No constipation, No blood in stool, No acid reflux, No hemorrhoids, No ulcers, No gallbladder problem and No black,tarry stools Pramod Hematologic: No blood thinners, No blood disorders, No bleeding, No anemia and No blood clots Neuro Neurologic: No system reviewed and no additional complaints, except as documented, No as per HPI, No abnormal gait, No abnormal hearing, No abnormal movements, No abnormal speech, No behavioral changes, No burning sensations, No confusion, No convulsions, No disequilibrium, No dizziness, No localized weakness, No frequent falls, No headache(s), No lack of coordination, No loss of vision, No memory loss, No numbness, No other visual disturbances, No radicular pain, No restless legs, No sensory deficit, No syncope, No tingling, No tremor(s), No weakness and No other Exam Const General: cooperative Orientation: alert and oriented x3 HENMT Head: normal to inspection Neck Neck: normal visual inspection and full ROM Chest Chest palpation & inspection: normal inspection of the chest Resp Effort & Inspection: normal respiratory effort Auscultation: clear to auscultation bilaterally Cardio Rate: regular rate Rhythm: regular rhythm GI Inspection: non-distended Palpation: soft and nontender Skin General: no rashes or lesions noted Neuro General: patient alert and patient oriented x3 Extrem General: full ROM Psych Appearance: grossly normal Mental Status: mental status grossly normal Assessment and Plan Assessment and Plan (1) History of colon polyps: Status: Acute Plan: I explained endoscopy in detail to the patient. I explained the risks including but not limited to stroke or heart attack with anesthesia, perforation of the GI tract, bleeding, infection. I explained that any of these could necessitate further emergency surgery. The patient understands and all questions were answered sufficiently. The patient wishes to proceed with procedure. German Urias MD Pager: [facility] [address] [place] [address], [address] [place] [address] Office: I have examined the patient and the H&P has been reviewed. There are no clinical changes since date of exam.
--- NOTE | 2024-09-21 09:19 | PCM.PRE.AN2 ---
ASA Classification* ASA Classification ASA Classification: 2 Assessment & Plan Anesthesia* Anesthesia Assessment Anesthesia Assessment: Discussed sedation and/or anesthesia options, risks, benefits, and alternatives with patient/parents/legal guardian/POA. Questions invited. The patient/parents/legal guardian/POA seems to understand and agrees to proceed with anesthesia plan. Reviewed the physical assessment, medical history, allergy history and patient home medications list prior to surgery/procedure/anesthetic and documented any changes. Performed airway and anesthesia risk assessments. Anesthesia Type Anesthesia Type: MAC Anesthesia Focused Assessment* Airway Assessment Mouth opens: >3 cm Mallampati Score: II Focused Labs Anesthesia Preop lab: CBC WBC 9.8 K/mm3 (4.4-11.0) 01/13/24 16:49 RBC 3.96 M/mm3 (4.6-6.2) L 01/13/24 16:49 Hgb 12.4 g/dL (13.0-16.5) L 01/13/24 16:49 Hct 36.6 % (40-54) L 01/13/24 16:49 Plt Count 229 K/mm3 (150-450) 01/13/24 16:49 CHEMISTRY Potassium 3.7 mmol/L (3.5-5.1) 01/13/24 16:49 Sodium 137 mmol/L (136-145) 01/13/24 16:49 Magnesium 2.2 mg/dL (1.6-2.6) 01/13/24 16:49 BUN 19 mg/dL (7-18) H 01/13/24 16:49 Creatinine 0.98 mg/dL (0.70-1.30) 01/13/24 16:49 Glucose 112 mg/dL (74-106) H 01/13/24 16:49 TSH 0.46 uIU/mL (0.358-3.74) 01/13/24 16:49 COAG PT 12.8 SECONDS (11.7-14.9) 05/24/18 10:28 Pre-Assessment Diagnosis/Proposed Procedure Planned Operative Procedure(s): COLONOSCOPY Anesthesia History 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 When Was Last Pacemaker Check QUESTION #4 FULL TEXT: You/Your Family Experience fever (hyperthermia) with Anesthesia Last Oral Intake Last Oral intake: Last Oral Intake NPO since Meds taken in AM with sips of water? 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 Female No 09/20/24 12:33 HX of Motion Sickness No 09/20/24 12:33 HX of N/V After Surgery No 09/20/24 12:33 Non-Smoker Yes 09/20/24 12:33 Duration of Surgery greater No 09/20/24 12:33 than 60 minutes Number of Risk Factors 1 09/20/24 12:33 PONV Score Low Risk 09/20/24 12:33 Height & Weight Height & Weight: Anesthesia: Height & Weight Height 5 ft 8 in 08/10/24 14:16 Respiratory Assessment Respiratory Assessment - glue size machine operator: Respiratory Tract Infection Hx - glue size machine operator Hx Respiratory Tract Infection No 09/20/24 12:33 STOP Sleep Apnea STOP Sleep Apnea - glue size machine operator: STOP Sleep Apnea - glue size machine operator Hx Hypertension Yes 09/20/24 12:33 Hx Sleep Apnea No 09/20/24 12:33 CPAP No 11/25/22 13:19 BIPAP Do you snore loudly (louder No 09/20/24 12:33 than talking or can be heard Do you often feel tired/ No 09/20/24 12:33 fatigued/ sleepy during daytime? Has anyone observed you stop No 09/20/24 12:33 breathing during sleep? STOP Results Negative 09/20/24 12:33 QUESTION #5 FULL TEXT : Do you snore loudly (louder than talking or can be heard through closed doors)? 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 Specify any problems Hx of Preganancy in last 3 N/A 09/20/24 12:33 Months Nurse Filling Out Transfusion [email or web address] 09/20/24 12:33 & Questions: Date: 09/20/24 09/20/24 12:33 Time: 12:35 09/20/24 12:33 Patient unable to answer at this time (ie. 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: /Reproductive Hx- glue size machine operator Hx Now Gestational Age (in weeks): EDC: Hx Hx Para Hx Section SAB PFSH Medical History Cancer Alcohol use Arthritis Smoker Normal stress echocardiogram History of stress test Hx of fracture of wrist Hx of reduction of nasal fracture Contusion of lower back Contusion of right chest wall Closed fracture of two ribs of right side TIA (transient ischemic attack) HTN (hypertension) Back pain Home Medications ?Medication ?Instructions ?Recorded ?Last Taken ?Type aspirin 81 mg tablet,delayed 81 mg PO DAILY HEART HEALTH 06/03/17 09/15/24 History release (Aspir-Low) ramipril 10 mg capsule (Altace) 20 mg PO DINNER 06/03/17 12/07/19 History ascorbic acid (vitamin C) 500 mg 500 mg PO DAILY 08/10/24 Unknown History capsule cholecalciferol (vitamin D3) 25 25 mcg PO QDAY 08/10/24 Unknown History mcg (1,000 unit) capsule hydrochlorothiazide 25 mg tablet 25 mg PO QDAY 08/10/24 Unknown History Allergy/AdvReac Type Severity Reaction Status Date / Time No Known Allergies Allergy Verified 09/20/24 12:31 Family History Sister Multiple sclerosis Myocardial infarction Surgical History S/P inguinal hernia repair Hx of colonoscopy Hx of surgical procedure Hx of transurethral resection of prostate Hx of eye surgery Bladder cancer Social History Smoking Status: Former smoker alcohol intake: current alcohol intake frequency: holidays/special occasions only Review of Systems (Anesthesia) ROS Narrative System reviewed and no additional complaints, except as documented.
[2024-09-21 09:24] VITALS: BP 163/75; PULSE 83; RESP 16; TEMP 36.6; O2SAT 100; BMI 25.0
--- NOTE | 2024-09-21 10:03 | OP.COLON_ITS ---
Patient Name: Lopez Quick Procedure Date: 09/21/2024 9:34 AM Date of : 1950 Age: 74 Procedure: Colonoscopy Indications: High risk colon cancer surveillance: Personal history of colonic polyps Providers: German Urias MD Referring MD: Edgar Burroughs Medicines: Propofol per Anesthesia Patient Profile: This is a 74 year old male. Refer to note in patient chart for documentation of history and physical. Last Colonoscopy: several years ago. Complications: No immediate complications. Procedure: Pre-Anesthesia Assessment: - Prior to the procedure, a History and Physical was performed, and patient medications and allergies were reviewed. The patient's tolerance of previous anesthesia was also reviewed. The risks and benefits of the procedure and the sedation options and risks were discussed with the patient. All questions were answered, and informed consent was obtained. Prior Anticoagulants: The patient has taken no anticoagulant or antiplatelet agents. After reviewing the risks and benefits, the patient was deemed in satisfactory condition to undergo the procedure. After I obtained informed consent, the scope was passed under direct vision. Throughout the procedure, the patient's blood pressure, pulse, and oxygen saturations were monitored continuously. The Colonoscope was introduced through the anus and advanced to the cecum, identified by appendiceal orifice and ileocecal valve. The colonoscopy was performed without difficulty. The patient tolerated the procedure well. The quality of the bowel preparation was good. The ileocecal valve, appendiceal orifice, and rectum were photographed. Scope In: 9:48:03 AM Scope Withdrawal Time 0 hours 5 minutes 35 seconds Scope Out: 9:59:00 AM Total Procedure Duration Time 0 hours 10 minutes 57 seconds Findings: The entire examined colon appeared normal on direct and retroflexion views. Impression: - The entire examined colon is normal on direct and retroflexion views. - No specimens collected. Recommendation: - Discharge patient to home. - Resume previous diet. - Continue present medications. - Repeat colonoscopy is not recommended due to current age (66 years or older) for screening purposes. Procedure Code(s): --- Professional --- 83026, Colonoscopy, flexible; diagnostic, including collection of specimen(s) by brushing or washing, when performed (separate procedure) Diagnosis Code(s): --- Professional --- Z86.010, Personal history of colonic polyps CPT copyright 2021 [employer]. All rights reserved. The codes documented in this report are preliminary and upon transition rn review may be revised to meet current compliance requirements. German Urias MD 09/21/2024 10:03:19 AM This report has been signed electronically. Number of Addenda: 0 Note Initiated On: 09/21/2024 9:34 AM
--- NOTE | 2024-09-21 10:03 | OP.CCLET_ITS ---
09/21/2024 Edgar Burroughs [address] [place] [address] Re : Colonoscopy procedure for [facility] Dear Dr. Burroughs This procedure was performed on Saturday, September 21, 2024. My impressions and recommendations are as follows: Impressions : - The entire examined colon is normal on direct and retroflexion views. - No specimens collected. Recommendations : - Discharge patient to home. - Resume previous diet. - Continue present medications. - Repeat colonoscopy is not recommended due to current age (66 years or older) for screening purposes. My findings are described in the full procedure note, which is enclosed. If I can be of further assistance, please feel free to contact me at Doctor phone number(s): , Work: . Sincerely, German Urias MD 09/21/2024 10:03:19 AM This report has been signed electronically.
[2024-09-21 10:05] VITALS: BP 118/67; BP 163/75; PULSE 84; RESP 18; TEMP 36.3; O2SAT 94
--- NOTE | 2024-09-21 10:09 | PCM.POST.ANE ---
Anesthesia: Postop Eval I Current Vital Signs Temperature: 97.3 F Pulse Rate: 83 Blood Pressure: 118/67 Respiratory Rate: 16 Pulse Ox: 95 Oxygen Delivery Method: Room Air Assessment Airway patent: Yes Spontaneous unlabored respirations: Yes Mental status: Asleep nausea: No Vomiting: No Anesthesia Complication: No Fluid Hydration Crystalloid volume administer (ml): 83 Total IV fluid infused: 83 Progress Note Anesthesia document: Postop Eval 1 completed: Yes
[2024-09-21 10:10] VITALS: BP 107/71; BP 118/67; BP 163/75; PULSE 80; PULSE 83; RESP 16; TEMP 36.3; O2SAT 94; O2SAT 95
[2024-09-21 10:15] VITALS: BP 124/64; BP 163/75; PULSE 86; RESP 18; O2SAT 95
[2024-09-21 10:20] VITALS: BP 120/63; BP 163/75; PULSE 86; RESP 18; TEMP 36.3; O2SAT 99
[2024-09-21 10:30] VITALS: BP 163/75
--- NOTE | 2024-09-21 12:27 | PCM.POSTANE2 ---
Anesthesia Postop Eval I Sum Postop Eval Completion status Anesthesia document: Postop Eval 1 completed: Yes Anesthesia Postop Eval I Summary Anesthesia Postop Eval I Summary: Anesthesia Postop Eval I: Assessment Summary Airway patent Yes 09/21/24 10:10 [email or web address] Spontaneous unlabored Yes 09/21/24 10:10 [email or web address] respirations Mental status Asleep 09/21/24 10:10 [email or web address] nausea No 09/21/24 10:10 [email or web address] Vomiting No 09/21/24 10:10 [email or web address] Anesthesia Postop Eval I: Fluid Summary Crystalloid volume administer 83 09/21/24 10:10 [email or web address] (ml) Colloids volume administered ( ml) Blood Product volume administered (ml) Total IV fluid infused 83 09/21/24 10:10 [email or web address] Anesthesia Postop Eval I: Summary Notes Anesthesia Complication No 09/21/24 10:10 [email or web address] Anesthesia Complication Comment: Post-operative progress note Anesthesia: Postop Eval II Evaluation Mental status: Awake Pain Level: 0 nausea: No Vomiting: No
== END 2024-09-21 10:39 | disposition home or self-care (01) ==
LOC: EN 09:04 → AC 09:05
PROVIDERS: PCP Family Medicine; Referring Provider Family Medicine; Visit Provider Surgery
PROC: 0DJD8ZZ Inspection of Lower Intestinal Tract, Via Natural or Artificial Opening Endoscopic (ICD-10-PCS; CPT 45378; principal; 2024-09-21 10:10)
DX: Z12.11 Encounter for screening for malignant neoplasm of colon (principal); I10 Essential (primary) hypertension; Z86.0100 Personal history of colon polyps, unspecified; Z79.899 Other long term (current) drug therapy; Z87.19 Personal history of other diseases of the digestive system
CPT/HCPCS: G0105; A4216; J2405

== ENCOUNTER → 2025-01-29 | Outpatient (CLI) | payer MEDICARE, OTHER, SELFPAY ==
[2025-01-29 13:19] LABS: Ferritin 505 ng/mL (37-417); Iron 148 ug/dL (65-175); Iron Binding Capacity,Total 323 ug/dL (250-450); Iron Binding Capacity,Unsat 175 ug/dL (228-428); Vitamin B12 366 pg/mL (180-914)
[2025-01-29 14:02] LABS: Cholesterol 207 mg/dL (<=200); High Density Lipoprotein 45 mg/dL; Low Density Lipoprotein Calc. 113 mg/dL; Triglycerides 245 mg/dL; Very Low Density Lipoprotein 49 mg/dL (5-40); cholesterol:hdl ratio screen 4.62
== END | disposition home or self-care (01) ==
LOC: MTLAB 10:13
PROVIDERS: PCP Family Medicine; Referring Provider Family Medicine; Visit Provider Family Medicine
DX: D64.9 Anemia, unspecified (principal); E78.2 Mixed hyperlipidemia
CPT/HCPCS: 36415; 80061; 82607; 82728; 83540; 83550

== ENCOUNTER → 2025-02-18 | Outpatient (CLI) | payer MEDICARE, OTHER, SELFPAY ==
--- NOTE | 2025-02-18 10:37 | FLU_PTH ---
PATIENT: NATIVIDAD ARTIS LOC: [facility] U#:[id number] AGE/SX: 74/M ROOM: RE02/18/[address]: Dr. Justin Vicente MD : 1950 BED: DIS: 02/18/2025 SPEC #: [id number] RECD: 02/18/25 15:40 STATUS: PENELOPE REJose Miguel #: [id number] ANTONY: 02/18/25 10:[address]: Justin Vicente DEPT: CYTOLOGY RECD BY: Polo Horner ENTERED: 02/19/25 10:20 SP TYPE: Fluid OTHR DR: Dr. Edgar Burroughs MD Tissues: Urine Procedures: Special Stain Group II Surgery Specimen Level IV Cytospin Fluid HEADER OPERATION: Not noted PRE-OP DIAGNOSIS: Personal history of malignant neoplasm of bladder TISSUE SUBMITTED: A- Urine for cytology - voided DIAGNOSIS CYTOLOGY A. Urine, voided: * Atypical degenerating urothelial cells, suspicious for carcinoma CYTOLOGY STUDY Slides are reviewed. CYTOLOGY GROSS A. Received is 80 ml of yellow-cloudy fluid labeled with the patient's name and and designated per the requisition as urine. Submitted for cytology preparation. Mr 02/19/2025 CPT: 09537
[2025-02-18 16:55] LABS: Cytology, Body Fluid / CSF SEE PATHOLOGY REPORT
== END | disposition home or self-care (01) ==
LOC: LABSPEC 15:41
PROVIDERS: PCP Family Medicine; Referring Provider Urology; Visit Provider Urology
DX: Z85.51 Personal history of malignant neoplasm of bladder (principal)
CPT/HCPCS: 88108; 88305; 88313

== ENCOUNTER → 2025-02-26 | Outpatient (CLI) | payer MEDICARE, OTHER, SELFPAY ==
--- NOTE | 2025-02-26 | CYSPIN_PTH ---
PATIENT: NATIVIDAD ARTIS LOC: [facility] U#:[id number] AGE/SX: 74/M ROOM: RE02/26/[address]: Dr. Justin Vicente MD : 1950 BED: DIS: 02/26/2025 SPEC #: [id number] RECD: 02/26/25 16:00 STATUS: PENELOPE SERVIN #: [id number] ANTONY: 02/26/25 00:[address]: Justin Vicente DEPT: CYTOLOGY RECD BY: Marsha Sykes ENTERED: 02/27/25 07:38 SP TYPE: CYSPIN FL OTHR DR: Dr. Edgar Burroughs MD Tissues: A - Urine Procedures: Pap Stain (control) Special Stain Group II Cytospin Fluid HEADER OPERATION: Not noted PRE-OP DIAGNOSIS: Malignant neoplasm of lateral wall of bladder TISSUE SUBMITTED: A- Urine for cytology DIAGNOSIS CYTOLOGY A. Urine: * Atypical urothelial cells, suspicious for carcinoma CYTOLOGY STUDY Slides are reviewed. CYTOLOGY GROSS A. Received is 10 ml of hazy-yellow fluid labeled with the patient's name and and designated per the requisition as urine. Submitted for cytology preparation. Mr 02/27/2025 CPT: 24890
[2025-02-26 16:31] LABS: Cytology, Body Fluid / CSF SEE PATHOLOGY REPORT
== END | disposition home or self-care (01) ==
PROVIDERS: PCP Family Medicine; Referring Provider Urology; Visit Provider Urology
DX: C67.2 Malignant neoplasm of lateral wall of bladder (principal)
CPT/HCPCS: 88108; 88313

== ENCOUNTER → 2025-02-28 | Outpatient (CLI) | payer MEDICARE, OTHER, SELFPAY ==
--- NOTE | 2025-02-28 17:40 | CT_ITS ---
PROCEDURE: LOW DOSE CT LUNG SCREENING 02/28/2025 REASON FOR EXAM: SMOKER Current smoker. Patient has smoked 1 pack per day for 48 years. TECHNIQUE: Low Dose CT Lung screening without contrast. Coronal and Sagittal reconstruction series were provided. One or more dose reduction techniques were used (e.g., Automated exposure control, adjustment of the mA and/or kV according to patient size, use of iterative reconstruction technique). REFERENCE LINK: [employer] Lung-RADS RADIATION DOSE SUMMARY: CTDlvol: 3.02 mGy DLP: 104.2 mGycm COMPARISON: Comparison is made with prior study dated March 18, 2023. FINDINGS: PULMONARY NODULES: (Only nodules >3mm are reported) Nodules described below are on series 1 unless otherwise specified. Pulmonary Nodules: No suspicious pulmonary nodule is seen. Hardware:None Lymph Nodes:Small mediastinal lymph nodes. Heart and Vasculature:Coronary artery calcifications are noted.Atherosclerotic calcifications of the thoracic aorta. Thoracic aorta and pulmonary arteries have normal contours; noncontrast technique limits evaluation. Coronary Artery Calcifications: Present Lungs and Airways: Mild emphysematous changes are present. Pleura:Unremarkable Upper Abdomen:Unremarkable Bones:Old right rib fractures. CT/Low Dose CT Lung Screening IMPRESSION: No suspicious nodules are seen. Coronary artery calcification (CAC) is is present Lung-RADS Category: 2 BENIGN (BASED ON IMAGING FEATURES OR INDOLENT BEHAVIOR). RECOMMEND 12-MONTH SCREENING LDCT. Other Significant Findings: None. Reading Location: [id number]
== END | disposition home or self-care (01) ==
LOC: CT 17:35
PROVIDERS: PCP Family Medicine; Referring Provider Family Medicine; Visit Provider Family Medicine
DX: Z12.2 Encounter for screening for malignant neoplasm of respiratory organs (principal); Z87.891 Personal history of nicotine dependence
CPT/HCPCS: 71271

== ENCOUNTER 2025-03-08 06:35 | Day surgery (SDC) | payer MEDICARE, OTHER, SELFPAY ==
--- NOTE | 2025-02-28 10:19 | EKG12_ITS ---
Test Reason : PRE OP Blood Pressure : */* mmHG Vent. Rate : 79 BPM Atrial Rate : 79 BPM P-R Int : 164 ms QRS Dur : 68 ms QT Int : 366 ms P-R-T Axes : 68 52 51 degrees QTcB Int : 419 ms Normal sinus rhythm Normal ECG Confirmed by IRVING FRANCO, ROCCO ([id number]), photographic editor ANDREA SÁNCHEZ ([id number]) on 03/04/2025 9:15:22 AM Referred By: Justin Vicente Confirmed By: ROCCO VILLATORO MD
[2025-02-28 11:46] LABS: Hematocrit 40.2 % (40-54); Hemoglobin 13.5 g/dL (13.0-16.5); Mean Corp Hgb Conc 33.6 g/dL (32-36); Mean Corpuscular Hgb 31.5 pg (27.0-32.0); Mean Corpuscular Volume 93.9 fL (80-94); Mean Platelet Vol. 11.6 fl (6.2-12.0); Platelet Count 224 K/mm3 (150-450); RBC Distribution Width CV 12.9 % (11.6-14.6); RBC Distribution Width SD 44.3 fl (35.1-43.9); Red Blood Count 4.28 M/mm3 (4.6-6.2)
[2025-02-28 12:19] LABS: Anion Gap 13 (5-15); BUN 32 mg/dL (4-19); BUN/Creat Ratio 23.4 RATIO (10-20); Calcium,Total 9.8 mg/dL (7.6-11.0); Carbon Dioxide 22.6 mmol/L (21.0-32.0); Chloride 99 mmol/L (98-108); Creatinine, Serum 1.37 mg/dL (0.70-1.20); EST Glomerular Filtration Rate 54 (>60); Glucose 104 mg/dL (70-99); Potassium 4.4 mmol/L (3.3-5.1); Sodium Level 134 mmol/L (133-145)
--- NOTE | 2025-02-28 17:55 | PAT.ANESEVAL ---
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 When Was Last Pacemaker Check QUESTION #4 FULL TEXT: You/Your Family Experience fever (hyperthermia) with Anesthesia Last Oral Intake Last Oral intake: Last Oral Intake NPO since Meds taken in AM with sips of water? 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 - network security administrator: PONV - network security administrator Female No 02/28/25 08:38 HX of Motion Sickness No 02/28/25 08:38 HX of N/V After Surgery No 02/28/25 08:38 Non-Smoker Yes 02/28/25 08:38 Duration of Surgery greater Yes 02/28/25 08:38 than 60 minutes Number of Risk Factors 2 02/28/25 08:38 PONV Score Moderate Risk 02/28/25 08:38 Height & Weight Height & Weight: Anesthesia: Height & Weight Height 5 ft 8 in 10/18/24 13:57 Respiratory Assessment Respiratory Assessment - network security administrator: Respiratory Tract Infection Hx - network security administrator Hx Respiratory Tract Infection No 02/28/25 08:38 STOP Sleep Apnea STOP Sleep Apnea - network security administrator: STOP Sleep Apnea - network security administrator Hx Hypertension Yes: controlled with meds 02/28/25 08:38 Hx Sleep Apnea No 02/28/25 08:38 CPAP No 11/25/22 13:19 BIPAP Do you snore loudly (louder No 02/28/25 08:38 than talking or can be heard Do you often feel tired/ No 02/28/25 08:38 fatigued/ sleepy during daytime? Has anyone observed you stop No 02/28/25 08:38 breathing during sleep? STOP Results Negative 02/28/25 08:38 QUESTION #5 FULL TEXT : Do you snore loudly (louder than talking or can be heard through closed doors)? 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 Specify any problems Hx of Preganancy in last 3 N/A 02/28/25 08:38 Months Nurse Filling Out Transfusion JZOLLINGE 02/28/25 08:38 & Questions: Date: 02/28/25 02/28/25 08:38 Time: 08:40 02/28/25 08:38 Patient unable to answer at this time (ie. confused, unrespo /Reproduction History /Reproductive History - network security administrator: /Reproductive Hx- network security administrator Hx Now No 02/28/25 08:38 Gestational Age (in weeks): EDC: Hx Hx Para Hx Section SAB No 02/28/25 08:38 PFSH Medical History Prostate disease Cancer Alcohol use Arthritis Smoker Normal stress echocardiogram History of stress test Hx of fracture of wrist Hx of reduction of nasal fracture Contusion of lower back Contusion of right chest wall Closed fracture of two ribs of right side TIA (transient ischemic attack) HTN (hypertension) Back pain Home Medications ?Medication ?Instructions ?Recorded ?Last Taken ?Type aspirin 81 mg tablet,delayed 81 mg PO DAILY HEART HEALTH 06/03/17 09/15/24 History release (Aspir-Low) ramipril 10 mg capsule (Altace) 20 mg PO BREAKFAST 06/03/17 12/07/19 History ascorbic acid (vitamin C) 500 mg 500 mg PO DAILY 10/25/24 Unknown History capsule cholecalciferol (vitamin D3) 25 25 mcg PO QDAY 08/10/24 Unknown History mcg (1,000 unit) capsule hydrochlorothiazide 25 mg tablet 25 mg PO QDAY 08/10/24 Unknown History Allergy/AdvReac Type Severity Reaction Status Date / Time No Known Allergies Allergy Verified 02/28/25 08:28 Family History Sister Multiple sclerosis Myocardial infarction Surgical History S/P inguinal hernia repair Hx of colonoscopy Hx of surgical procedure Hx of transurethral resection of prostate Hx of eye surgery Bladder cancer Social History Smoking Status: Former smoker alcohol intake: current alcohol intake frequency: holidays/special occasions only Audit: Pertinent Findings HISTORY of Pertinent Findings History of Pertinent Findings: Patinet has >4METs Recommendation Anesthesia Recommendation Anesthesia recommendation: OPTIMIZED for anesthesia (New EKG on day of arrival)
[2025-03-08] VITALS (12 sets, daily range): BP systolic 132–148; BP diastolic 60–95; PULSE 84–103; RESP 16–18; TEMP 36.3–36.8; O2SAT 96–100; BMI 25.7
--- NOTE | 2025-03-08 06:48 | PCM.PRE.AN2 ---
ASA Classification* ASA Classification ASA Classification: 2 Assessment & Plan Anesthesia* Anesthesia Assessment Anesthesia Assessment: Discussed sedation and/or anesthesia options, risks, benefits, and alternatives with patient/parents/legal guardian/POA. Questions invited. The patient/parents/legal guardian/POA seems to understand and agrees to proceed with anesthesia plan. Reviewed the physical assessment, medical history, allergy history and patient home medications list prior to surgery/procedure/anesthetic and documented any changes. Performed airway and anesthesia risk assessments. Anesthesia Type Anesthesia Type: General Anesthesia Focused Assessment* Airway Assessment Mouth opens: >3 cm Mallampati Score: II Focused Labs Anesthesia Preop lab: CBC WBC 6.0 K/mm3 (4.4-11.0) 02/28/25 10:44 02/28/25 RBC 4.28 M/mm3 (4.6-6.2) L 02/28/25 10:44 02/28/25 Hgb 13.5 g/dL (13.0-16.5) 02/28/25 10:44 02/28/25 Hct 40.2 % (40-54) 02/28/25 10:44 02/28/25 Plt Count 224 K/mm3 (150-450) 02/28/25 10:44 02/28/25 CHEMISTRY Potassium 4.4 mmol/L (3.3-5.1) 02/28/25 10:44 02/28/25 Sodium 134 mmol/L (133-145) 02/28/25 10:44 02/28/25 Magnesium 2.2 mg/dL (1.6-2.6) 01/13/24 16:49 01/13/24 BUN 32 mg/dL (4-19) H 02/28/25 10:44 02/28/25 Creatinine 1.37 mg/dL (0.70-1.20) H 02/28/25 10:44 02/28/25 Glucose 104 mg/dL (70-99) H 02/28/25 10:44 02/28/25 TSH 0.46 uIU/mL (0.358-3.74) 01/13/24 16:49 01/13/24 COAG PT 12.8 SECONDS (11.7-14.9) 05/24/18 10:28 05/24/18 Pre-Assessment Diagnosis/Proposed Procedure Planned Operative Procedure(s): Cysto,Transurethra [facility] Anesthesia History 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 When Was Last Pacemaker Check QUESTION #4 FULL TEXT: You/Your Family Experience fever (hyperthermia) with Anesthesia Last Oral Intake Last Oral intake: Last Oral Intake NPO since Meds taken in AM with sips of water? 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 Female No 02/28/25 08:38 HX of Motion Sickness No 02/28/25 08:38 HX of N/V After Surgery No 02/28/25 08:38 Non-Smoker Yes 02/28/25 08:38 Duration of Surgery greater Yes 02/28/25 08:38 than 60 minutes Number of Risk Factors 2 02/28/25 08:38 PONV Score Moderate Risk 02/28/25 08:38 Height & Weight Height & Weight: Anesthesia: Height & Weight Height 5 ft 8 in 03/07/25 07:46 Weight: 78.018 kg 03/07/25 07:46 Respiratory Assessment Respiratory Assessment - assistant professor of biochemistry: Respiratory Tract Infection Hx - assistant professor of biochemistry Hx Respiratory Tract Infection No 02/28/25 08:38 STOP Sleep Apnea STOP Sleep Apnea - assistant professor of biochemistry: STOP Sleep Apnea - assistant professor of biochemistry Hx Hypertension Yes: controlled with meds 02/28/25 08:38 Hx Sleep Apnea No 02/28/25 08:38 CPAP No 11/25/22 13:19 BIPAP Do you snore loudly (louder No 02/28/25 08:38 than talking or can be heard Do you often feel tired/ No 02/28/25 08:38 fatigued/ sleepy during daytime? Has anyone observed you stop No 02/28/25 08:38 breathing during sleep? STOP Results Negative 02/28/25 08:38 QUESTION #5 FULL TEXT : Do you snore loudly (louder than talking or can be heard through closed doors)? 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 Specify any problems Hx of Preganancy in last 3 N/A 02/28/25 08:38 Months Nurse Filling Out Transfusion JZOLLINGE 02/28/25 08:38 & Questions: Date: 02/28/25 02/28/25 08:38 Time: 08:40 02/28/25 08:38 Patient unable to answer at this time (ie. confused, unrespo /Reproduction History /Reproductive History - assistant professor of biochemistry: /Reproductive Hx- assistant professor of biochemistry Hx Now No 02/28/25 08:38 Gestational Age (in weeks): EDC: Hx Hx Para Hx Section SAB No 02/28/25 08:38 Active Medications Active Medications: Current Medications Generic Name Dose Route Start Last Admin Trade Name Freq PRN Reason Stop Dose Admin Mitomycin 40 mg/ N/A 40 mls @ 2,400 mls/hr 03/08/25 08:40 INSTILLAT 03/08/25 08:41 X1 ONE Cefazolin Sodium 2 gm/ Sodium 110 mls @ 150 mls/hr 03/08/25 08:40 Chloride IV 03/08/25 09:23 INTRAOP ONE Lactated Ringer's 1,000 mls @ 15 mls/hr 03/08/25 07:00 IV .Q48H LALITHA PFSH Medical History Prostate disease Cancer Alcohol use Arthritis Smoker Normal stress echocardiogram History of stress test Hx of fracture of wrist Hx of reduction of nasal fracture Contusion of lower back Contusion of right chest wall Closed fracture of two ribs of right side TIA (transient ischemic attack) HTN (hypertension) Back pain Home Medications ?Medication ?Instructions ?Recorded ?Last Taken ?Type aspirin 81 mg tablet,delayed 81 mg PO DAILY HEART HEALTH 06/03/17 09/15/24 History release (Aspir-Low) ramipril 10 mg capsule (Altace) 20 mg PO BREAKFAST 06/03/17 12/07/19 History ascorbic acid (vitamin C) 500 mg 500 mg PO DAILY 08/10/24 Unknown History capsule cholecalciferol (vitamin D3) 25 25 mcg PO QDAY 08/10/24 Unknown History mcg (1,000 unit) capsule hydrochlorothiazide 25 mg tablet 25 mg PO QDAY 08/10/24 Unknown History Allergy/AdvReac Type Severity Reaction Status Date / Time No Known Allergies Allergy Verified 02/28/25 08:28 Family History Sister Multiple sclerosis Myocardial infarction Surgical History S/P inguinal hernia repair Hx of colonoscopy Hx of surgical procedure Hx of transurethral resection of prostate Hx of eye surgery Bladder cancer Social History Smoking Status: Former smoker alcohol intake: current alcohol intake frequency: holidays/special occasions only Review of Systems (Anesthesia) ROS Narrative System reviewed and no additional complaints, except as documented.
[2025-03-08] MEDS: Lactated Ringers 1,000 ML 15 ML IV (07:04)
--- NOTE | 2025-03-08 08:12 | PCM.HP.STD ---
HPI - General General Date of Service: 03/08/25 Chief Complaint: Bladder cancer HPI Narrative NATIVIDAD ARTIS, is a 74 M who presents for resection of a large tumor in his bladder and instillation of Mitomycin-C PFSH Medical History Prostate disease Cancer Alcohol use Arthritis Smoker Normal stress echocardiogram History of stress test Hx of fracture of wrist Hx of reduction of nasal fracture Contusion of lower back Contusion of right chest wall Closed fracture of two ribs of right side TIA (transient ischemic attack) HTN (hypertension) Back pain Home Medications ?Medication ?Instructions ?Recorded ?Last Taken ?Type aspirin 81 mg tablet,delayed 81 mg PO DAILY HEART HEALTH 06/03/17 03/01/25 History release (Aspir-Low) ramipril 10 mg capsule (Altace) 20 mg PO BREAKFAST 06/03/17 03/08/25 History ascorbic acid (vitamin C) 500 mg 500 mg PO DAILY 08/10/24 03/07/25 History capsule cholecalciferol (vitamin D3) 25 25 mcg PO QDAY 08/10/24 03/07/25 History mcg (1,000 unit) capsule hydrochlorothiazide 25 mg tablet 25 mg PO QDAY 08/10/24 03/07/25 History ibuprofen 600 mg tablet 600 mg PO Q6H PRN pain #20 tabs 03/08/25 Unknown Rx phenazopyridine 100 mg tablet 100 mg PO TID PRN pain 5 days #14 03/08/25 Unknown Rx (Pyridium) tabs Allergy/AdvReac Type Severity Reaction Status Date / Time No Known Allergies Allergy Verified 03/08/25 07:03 Family History Sister Multiple sclerosis Myocardial infarction Surgical History S/P inguinal hernia repair Hx of colonoscopy Hx of surgical procedure Hx of transurethral resection of prostate Hx of eye surgery Bladder cancer Social History Smoking Status: Former smoker alcohol intake: current alcohol intake frequency: holidays/special occasions only Vital Signs Vital Signs Vital Signs: 03/08/25 07:05 03/08/25 07:05 Temperature 97.4 F L Temperature Source Temporal Pulse Rate 90 Respiratory Rate 16 Respiratory Pattern Normal Blood Pressure 139/68 H Blood Pressure Mean 91 Blood Pressure Source Monitor Blood Pressure Position Semi-Fowlers Blood Pressure Location Left Arm Pulse Ox 99 Oxygen Delivery Method Room Air Weight Weight: 76.9 kg Body Mass Index (BMI) 25.7 Results Lab / Micro Data 02/28/25 10:44 02/28/25 10:44
--- NOTE | 2025-03-08 08:13 | PCM.DC ---
Discharge Instructions Diet Discharge Diet: No restrictions DC O2, CPAP, BIPAP needs Home O2 Discharge instructions: No Dressing / Incision Discharge Activity: Return to Normal Activity and May Not Drive (while taking narcotic pain medications.) Dressing / Incision Call your doctor if you observe: Fever of 101 or Higher Follow Up Care Please Follow Up With: Justin Vicente MD When: Call [phone] for an appointment Test Results: Test results from this visit will be discussed in further detail at your follow-up appointment, if applicable. Discharge Plan Admission Primary Reason for Your Visit: Resection of bladder tumor large Attending Provider: Justin Vicente Primary Care Provider: Edgar Burroughs Instructions Patient Instructions: Bladder Cancer TUR, Transurethral Bladder Tumor Dc Print Language: Filipino Discharge Orders/Prescriptions Prescriptions: New ibuprofen 600 mg tablet 600 mg PO Q6H PRN (Reason: pain) Qty: 20 0RF phenazopyridine [Pyridium] 100 mg tablet 100 mg PO TID PRN (Reason: pain) 5 Days Qty: 14 0RF Continued hydrochlorothiazide 25 mg tablet 25 mg PO QDAY cholecalciferol (vitamin D3) 25 mcg (1,000 unit) capsule 25 mcg PO QDAY ascorbic acid (vitamin C) 500 mg capsule 500 mg PO DAILY aspirin [Aspir-Low] 81 MG tablet,delayed release (DR/EC) 81 mg PO DAILY ramipril [Altace] 10 MG capsule 20 mg PO BREAKFAST Patient Comments: BP Referrals / Follow Up: Justin Vicente MD [Med Staff - Active Staff] - Edgar Burroughs MD [Primary Care Provider] - Disposition Disposition (needs filled in before D/C Order can be placed): Home, Self Care
[2025-03-08] MEDS: Cefazolin 2 GM in 0.9% Normal Saline (100mL Bag) 100 ML IV (08:34)
--- NOTE | 2025-03-08 08:40 | BLA_PTH ---
PATIENT: NATIVIDAD ARTIS LOC: [facility] [place] U#:[id number] AGE/SX: 74/M ROOM: RE03/08/[address]: Dr. Justin Vicente MD : 1950 BED: DIS: 03/08/2025 SPEC #: [id number] RECD: 03/08/25 10:55 STATUS: PENELOPE SERVIN #: [id number] ANTONY: 03/08/25 08:[address]: Justin Vicente DEPT: SURGICAL PATHOLOGY RECD BY: Polo Horner ENTERED: 03/08/25 11:13 SP TYPE: BLADDER BX OTHR DR: Dr. Edgar Burroughs MD Tissues: A - Urinary bladder, NOS Procedures: Surgery Specimen Level V HEADER OPERATION: Transurethral resection bladder tumor PRE-OP DIAGNOSIS: Bladder cancer TISSUE SUBMITTED: A- Bladder tumor MICROSCOPIC DIAGNOSIS A. Bladder, tumor, transurethral resection of bladder tumor: * High grade urothelial carcinoma, non-invasive - see Comment. * Lamina propria present and not involved. * No muscularis propria identified. COMMENT Selected slides/images were reviewed in intradepartmental consultation by Dr Jerilyn Castaneda ([facility] pathology division, [facility]). MICROSCOPIC DESCRIPTION Slides are reviewed. GROSS DESCRIPTION A. Received in formalin in a container labeled with the patient's name, date of , and bladder tumor are multiple greenfield-pink and friable fragments of soft tissue weighing approximately 1.1 g together and measuring 2.5 x 2.0 x 0.7 cm in aggregate. Submitted in toto in A1. B 03-08-2025 CPT:55365
--- NOTE | 2025-03-08 09:14 | PCM.OPRPT ---
Operative Report (Standard) Operative Information Date of Procedure: 03/08/25 Pre-Operative Diagnosis: Large bladder tumor, 5 cm in size and greater Post-Operative Diagnosis: the same Surgery/Procedure Performed: Transurethral resection of a large bladder tumor, instillation of Mitomycin-C skirt panel assembler: No Type of Anesthesia: General RN Documented Start/Stop Times: Operation Date: 03/08/25 08:40 Case Time Into Pre-Op 03/08/25 06:45 Procedure Start Time: 08:50 Procedure Stop Time: 09:15 Select all DRAINS/GRAFTS/IMPLANTS that apply: Drains Drain details: Chacko catheter Estimated Blood Loss: None Specimen collected: Yes Description of specimen(s) removed: Pieces of bladder tumor Description of surgery: Patient was taken back to the operating room after smooth induction of anesthesia he was placed in dorsolithotomy position he was intubated and underwent neuromuscular blockade, I dilated the meatus with sounds from 18 [place]tarian to 26 [place]arian I then was able to go into a urethra with the 26 [place]tarian continuous-flow Olympus bipolar resectoscope once I got inside the bladder to distend the bladder completely identified a large tumor that was in the posterior wall right side and lateral wall the bladder really near the right ureter orifice but not involved. I then put in the resectoscope loop and started resecting tumor I worked on my tumors left edge and slowly worked my way across the tumor resecting the tumor down to the mucosa it was a noninvasive tumor was not muscle-invasive I did not get much muscle during the resection on purpose since it was not of muscle invasive tumor but it was a large papillary tumor as that was resected and the tumor worked way all the way across after resection of the tumor completely then I cauterized the base of the tumor extensively and cauterized all the way around there was a lot of little tiny tumors at the edges the big tumor the ureter that was superficial carpet like tumors throughout the edges a rent around the big tumor and that this was all cauterized completely I then Ellik to all the chips of the bladder inspected bladder again there was no signs of bleeding from the resection site we put a catheter in the bladder and put Mitomycin-C treatment into the bladder patient's anesthetic was reversed he was taken back to the PACU in stable condition with a Chacko catheter in place will drain the Mitomycin-C in 1 hour and remove the catheter for voiding trial. Surgical Findings: Large bladder tumor occupying the posterior right wall and posterior wall overlapping sites Complications Complications: No Admit VTE Documentation VTE Present on Admission: No VTE Mechan Device Prophylaxis: SCD's VTE Pharm Prophylaxis ordered?: No
--- NOTE | 2025-03-08 09:27 | PCM.POST.ANE ---
Anesthesia: Postop Eval I Current Vital Signs Temperature: 98.2 F Pulse Rate: 100 Blood Pressure: 145/60 Respiratory Rate: 16 Pulse Ox: 100 Oxygen Delivery Method: Room Air Assessment Airway patent: Yes Spontaneous unlabored respirations: Yes Mental status: Awake and Calm nausea: No Vomiting: No Anesthesia Complication: No Fluid Hydration Crystalloid volume administer (ml): 700 Total IV fluid infused: 700 Progress Note Anesthesia document: Postop Eval 1 completed: Yes
[2025-03-08] MEDS: Ketorolac 15 MG/ML Vial IV (09:45)
--- NOTE | 2025-03-08 10:10 | POSTOPAN2_ITS ---
Anesthesia Postop Eval I Sum Postop Eval Completion status Anesthesia document: Postop Eval 1 completed: Yes Anesthesia Postop Eval I Summary Anesthesia Postop Eval I Summary: Anesthesia Postop Eval I: Assessment Summary Airway patent Yes 03/08/25 09:27 COMPOSITION [email or web address] Spontaneous unlabored Yes 03/08/25 09:27 COMPOSITION [email or web address] respirations Mental status Awake,Calm 03/08/25 09:27 COMPOSITION [email or web address] nausea No 03/08/25 09:27 COMPOSITION [email or web address] Vomiting No 03/08/25 09:27 COMPOSITION [email or web address] Anesthesia Postop Eval I: Fluid Summary Crystalloid volume administer 700 03/08/25 09:27 COMPOSITION [email or web address].MDOT (ml) Colloids volume administered ( ml) Blood Product volume administered (ml) Total IV fluid infused 700 03/08/25 09:27 COMPOSITION [email or web address] Anesthesia Postop Eval I: Summary Notes Anesthesia Complication No 03/08/25 09:27 COMPOSITION [email or web address] Anesthesia Complication Comment: Post-operative progress note Anesthesia: Postop Eval II Evaluation Mental status: Awake Pain Level: 2 nausea: No Vomiting: No
--- NOTE | 2025-03-08 10:10 | PCM.POSTANE2 ---
Anesthesia Postop Eval I Sum Postop Eval Completion status Anesthesia document: Postop Eval 1 completed: Yes Anesthesia Postop Eval I Summary Anesthesia Postop Eval I Summary: Anesthesia Postop Eval I: Assessment Summary Airway patent Yes 03/08/25 09:27 PROFESSOR OF [email or web address].[email or web address] Spontaneous unlabored Yes 03/08/25 09:27 PROFESSOR OF VOICE.MDOT respirations Mental status Awake,Calm 03/08/25 09:27 PROFESSOR OF VOICE.MDOT nausea No 03/08/25 09:27 PROFESSOR OF VOICE.MDOT Vomiting No 03/08/25 09:27 PROFESSOR OF VOICE.MDOT Anesthesia Postop Eval I: Fluid Summary Crystalloid volume administer 700 03/08/25 09:27 PROFESSOR OF VOICE.MDOT (ml) Colloids volume administered ( ml) Blood Product volume administered (ml) Total IV fluid infused 700 03/08/25 09:27 PROFESSOR OF [email or web address].MDOT Anesthesia Postop Eval I: Summary Notes Anesthesia Complication No 03/08/25 09:27 PROFESSOR OF VOICE.MDOT Anesthesia Complication Comment: Post-operative progress note Anesthesia: Postop Eval II Evaluation Mental status: Awake Pain Level: 2 nausea: No Vomiting: No
--- NOTE | 2025-03-08 10:46 | SUR.PHASEII ---
AT APPROXIMATELY 10:25, GOLD CATHETER UNCLAMP AFTER 1 HOUR OF MITOMYCIN C INSTALLATION. GOLD DRAINING CLEAR PURPLE TINGED URINE. AFTER APPROXIMATELY 5 MIN, GOLD CATHETER REMOVED INTACT USING CHEMOTHERAPY PRECAUTIONS
== END 2025-03-08 11:53 | disposition home or self-care (01) ==
LOC: SDC 06:36 → AC 06:37
PROVIDERS: Anesthesiology; PCP Family Medicine; Referring Provider Urology; Visit Provider Urology
PROC: 0T5B8ZZ Destruction of Bladder, Via Natural or Artificial Opening Endoscopic (ICD-10-PCS; CPT 51720; principal; 2025-03-08 08:30)
DX: C67.4 Malignant neoplasm of posterior wall of bladder (principal); C67.2 Malignant neoplasm of lateral wall of bladder; Z87.891 Personal history of nicotine dependence; I10 Essential (primary) hypertension; Z79.899 Other long term (current) drug therapy
CPT/HCPCS: 52235; 00912; 36415; 80048; 85027; 88305; 88307; 93005; J9280; J2405

== ENCOUNTER → 2025-08-05 | Outpatient (CLI) | payer MEDICARE, OTHER, SELFPAY ==
[2025-08-05 12:50] LABS: PSA,Total - Annual Screen 1.11 ng/mL (0.02-4.00)
== END | disposition home or self-care (01) ==
LOC: MFPLAB 09:33
PROVIDERS: PCP Family Medicine
DX: Z12.5 Encounter for screening for malignant neoplasm of prostate (principal)
CPT/HCPCS: 36415; 84153; G0103